=== PATIENT | male | born 1945 | race Caucasian/White ===

== ENCOUNTER 2019-05-26 18:00 | Inpatient (IN) ==
[2019-05-26] MEDS ORDERED: NS 1000 ML 1,000 ML ONE ×2 (18:34→19:49)
[2019-05-26] MEDS ORDERED: ZOFRAN INJ 4 MG VIAL IVP ONE ×2 (18:47→19:27)
--- NOTE | 2019-05-26 18:50 | DR.N/VMALE ---
HPI Time Seen Time Seen by Provider: 05/26/19 18:47 Primary Care Physician Primary Care Physician: LULÚ HPI Comment HPI Comment: PATIENT IS 74YR OLD MALE IN EMERGENCY ROOM WITH BETIC MEDICATION CHANGED. DIARRHEA THAT IS ON GOING FOR ONE WEEK. INCRESING WEAKNESS AND DIARRHA SINCE DIABETIC MEDICATION CHANGED. THAT MEDICATION IS NOW STOP. DENIES FEVER OR DYSURIA.PAIN 7/10 DIATING ALL OVER THE ABDOMEN. HE IS NAUSEATED BUT NO ACTIVE VOMITING CURRENTLY. Complaints Chief Complaint Doctors Comments: DIARRHEA, WEAKNESS AND NAUSEA TIMES ONE WEEK. Chief Complaint:: PT C/O POSSIBLE DEHYDRATION. PT STATES HE HAS BEEN HAVING NAUSEA AND DIARRHEA THAT HAS BEEN GOING ON FOR THE PAST FEW DAYS/ WEEKS. PT STATES HE WAS JUST STARTED ON A NEW DIABETIC MEDICATION AND HE HAS BEEN FEELING BAD BEFORE THE MEDICATION, BUT HIS PHYSICIAN AT THE [facility] HAS MADE HIM QUIT TAKING THE MEDICATION BECAUSE OF THE SYMPTOMS WORSENING. Reviewed Nurses Notes Reviewed: Yes Source History Provided: Patient Mode of Arrival Mode of Arrival: Ambulatory Timing Onset of Chief Complaint: 05/19/19 Context Onset: Spontaneous Recent: Contact Exposure History of: Diabetes Quality Quality: Other (LOOSE MUCOU DIARRHEA.) Associated Signs and Symptoms Abdominal Pain Quality: Cramping and Sharp Abdominal Pain Location: Diffuse Symptoms: Abdominal Pain and Diarrhea PMH PMH Past Medical History: Yes Past Medical History: Angina, CHF, Diabetes, Dyslipidemia, GERD, Hypertension and Renal Disease Past Surgical History: Yes Surgical History: Appendectomy and Ortho Surgery Past Surgical History Comment: ABLATION, NECK, BACK, LT LEG, LT FINGER Family History History of Family Medical Conditions: No Social History Does any household member use tobacco: No Alcohol Use: None Do you use any recreational Drugs:: No Lives With: Family Lives Where: Home infectious screening In the last 2 months have you had wt loss of >10#?: NO Have you had fever, night sweats or hemotysis?: No Have you traveled outside the country in the last 6 months?: No Isolation: Standard ROS Review of Systems Constitutional: See HPI, Weakness, Fatigue and Loss of Appetite; negative Fever Eyes: No Symptoms Reported and See HPI ENTM: No Symptoms Reported and See HPI Respiratoy: No Symptoms Reported and See HPI; negative Productive Cough, Short of Breath and Wheezing Cardiovascular: No Symptoms Reported and See HPI; negative Chest Pain, Edema and Palpitations Gastrointestinal/Abdominal: See HPI, Abdominal Pain, Diarrhea and Nausea; negative Constipation and Vomiting Genitourinary: No Symptoms Reported and See HPI; negative Dysuria, Frequency and Hematuria Neurological: See HPI, Weakness and Dizziness; negative Headache Musculoskeletal: See HPI and Muscle Pain; negative Back Pain Integumentary: No Symptoms Reported and See HPI; negative Change in Color, Rash and Juandice Hematologic/Lymphatic: See HPI, Easy Bleeding and Easy Bruising; negative Swollen Glands and Lymphadenopathy Endocrine: See HPI, Increased Thirst and Decreased Appetite; negative Increased Urine Psychiatric: No Symptoms Reported and See HPI All Other Systems: Reviewed and Negative PE Vital Signs Vitals: Temperature 98 F Pulse Rate [Left] 66 Pulse Rate 75 Respiratory Rate 20 Blood Pressure [Left Arm] 142/99 Blood Pressure 124/67 O2 Sat by Pulse Oximetry 95 General Limitations: No Limitations General Appearance: Alert and In No Apparent Distress Head Head Exam: Normal Inspection and Atraumatic Eyes Eye exam: Normal Appearance and PERRL; negative Scleral Icterus and Conjunctival Injection ENT ENT Exam: Normal Exam, Normal Oropharynx, Normal External Ear Exam and TM's Normal Bilaterally Neck Neck Exam: Normal Inspection and Trachea Midline; negative Tenderness and Lymphadenopathy Chest Chest Inspection: Normal Inspection and Symmetric Chest Wall Rise; negative Ten derness Respiratory Respiratory Exam: Normal Lung Sounds Bilat; negative Accessory Muscle Use, Chest Wall Tenderness and Respiratory Distress Respiratory Exam: Bilateral: Rhonchi and Lower: Rhonchi Cardiovascular Cardiovascular Exam: Regular Rate, Normal Rhythm and Normal Heart Sounds; negative Systolic Murmur and Diastolic Murmur Abdominal Exam Abdominal Exam: Normal Bowel Sounds, Soft and Tenderness Abdominal Tenderness: Diffuse and Moderate Rectal Rectal Exam: Deferred Exam: Male: Deferred Extremities Extremities Exam: Normal Inspection and Normal Capillary Refill; negative Tenderness, Edema and Calf Tenderness Back Back Exam: Normal Inspection and Vertebral Tenderness; negative Tenderness, (R) CVA Tenderness, (L) CVA Tenderness and Paraspinal Tenderness Neurologic Neurological Exam: Alert and Oriented X3; negative CN II-XII Intact and Motor Sensory Deficit Psychiatric Psychiatric Exam: Normal Affect and Normal Mood Skin Skin Exam: Dry MDM Differential Diagnosis Differential Diagnosis: Considerations may Include:: Bowel Obstruction, Gastroenteritis, Inflammatory BD, Pancreatitis, Urinary Tract Infection and Urolithiasis COURSE Treatment Treatment: SEE ORDERS. Education/Counseling Education/Counseling: Patient Educated On: Diagnosis ROR Labs Reviewed Laboratory Results Reviewed?: Yes Result Diagrams: 05/28/19 06:05 05/28/19 06:05 Laboratory: 05/27/19 13:25 Stool Stool Culture - Preliminary 05/27/19 13:25 Stool - Final WBC 10.1 X10^3/uL (3.6-10.0) H 05/28/19 06:05 RBC 4.58 X10^6/uL (4.7-6.0) L 05/28/19 06:05 Hgb 14.3 g/dL (13.5-18.0) 05/28/19 06:05 Hct 41.4 % (42.0-54.0) L 05/28/19 06:05 MCV 90.3 fL (80.0-100.0) 05/28/19 06:05 MCH 31.1 pg (27.0-34.0) 05/28/19 06:05 MCHC 34.5 g/dL (33.0-35.0) 05/28/19 06:05 RDW 13.1 % (11.6-16.5) 05/28/19 06:05 Plt Count 249 X10^3/uL (150.0-450.0) 05/28/19 06:05 Plt Count Comment Adequate (ADEQUATE) 05/28/19 06:05 MPV 7.3 fL (7.4-11.0) L 05/28/19 06:05 Neut % (Auto) 59.9 % (42.0-75.0) 05/28/19 06:05 Lymph % (Auto) 24.1 % (21.0-51.0) 05/28/19 06:05 [place] % (Auto) 13.1 % (0.0-13.0) H 05/28/19 06:05 Eos % (Auto) 2.4 % (0.9-2.9) 05/28/19 06:05 Baso % (Auto) 0.5 % (0.2-1.0) 05/28/19 06:05 Neut # (Auto) 6.1 x10^3/uL (2.2-4.8) H 05/28/19 06:05 Lymph # (Auto) 2.4 X10^3/uL (1.3-2.9) 05/28/19 06:05 [place] # (Auto) 1.3 x10^3/uL (0.3-0.8) H 05/28/19 06:05 Eos # (Auto) 0.2 x10^3/uL (0.0-0.2) 05/28/19 06:05 Baso # (Auto) 0.1 X10^3/uL (0.0-0.1) 05/28/19 06:05 Absolute Nucleated RBC 0.0 /100WBC 05/28/19 06:05 Total Counted 100 05/28/19 06:05 Neutrophils % (Manual) 54 % (39-76) 05/28/19 06:05 Band Neutrophils % 8 % (0-10) 05/28/19 06:05 Lymphocytes % (Manual) 20 % (13-43) 05/28/19 06:05 Monocytes % (Manual) 10 % (4-9) H 05/28/19 06:05 Eosinophils % (Manual) 8 % (0-6) H 05/28/19 06:05 Plt Morphology Comment Normal (NORMAL) 05/28/19 06:05 RBC Morphology Normal (NORMAL) 05/28/19 06:05 ESR 19 MM/HOUR (0-15) H 05/28/19 06:05 Sodium 138 mmol/L (136-145) 05/28/19 06:05 Corrected Sodium 140 mmol/L (136-145) 05/28/19 06:05 Potassium 3.5 mmol/L (3.5-5.1) 05/28/19 06:05 Chloride 106 mmol/L (98-107) 05/28/19 06:05 Carbon Dioxide 20.0 mmol/L (21-32) L 05/28/19 06:05 BUN 13 mg/dL (7-18) 05/28/19 06:05 Creatinine 1.22 mg/dL (0.70-1.30) 05/28/19 06:05 Est GFR (MDRD) Af Amer > 60 (>60) 05/28/19 06:05 Est GFR (MDRD) Non-Af > 60 (>60) 05/28/19 06:05 Glucose 199 mg/dL (65-99) H 05/28/19 06:05 POC Glucose (mg/dL) 143 mg/dL (65-99) H 05/27/19 16:27 Calcium 7.9 mg/dL (8.5-10.1) L 05/28/19 06:05 Corrected Calcium 8.8 mg/dL (8.5-10.1) 05/28/19 06:05 Magnesium 1.4 mg/dL (1.7-2.9) L 05/28/19 06:05 Total Bilirubin 0.30 mg/dL (0.2-1.0) 05/28/19 06:05 AST 21 Units/L (15-37) 05/28/19 06:05 ALT 37 Units/L (12-78) 05/28/19 06:05 Alkaline Phosphatase 45 Units/L (46-116) L 05/28/19 06:05 C-Reactive Protein 69.80 mg/L (0-3.0) H 05/28/19 06:05 Total Protein 6.7 g/dL (6.4-8.2) 05/28/19 06:05 Albumin 2.9 g/dL (3.4-5.0) L 05/28/19 06:05 Globulin 3.8 g/dL (2.5-4.5) 05/28/19 06:05 Albumin/Globulin Ratio 0.8 Ratio (1.1-2.1) L 05/28/19 06:05 Amylase 36 Units/L (25-115) 05/26/19 18:45 Lipase 149 Units/L (73-393) 05/26/19 18:45 Free T4 1.05 ng/dL (0.76-1.46) 05/28/19 06:05 TSH 3rd Generation 2.945 uIU/mL (0.358-3.74) 05/28/19 06:05 Specimen Type Clean catch urine 05/26/19 21:27 Urine Color Dark yellow (YELLOW) 05/26/19 21:27 Urine Appearance Clear (CLEAR) 05/26/19 21:27 Urine pH 5.0 (5.0 - 8.0) 05/26/19 21: Ur Specific [place] 1.020 (1.000-1.030) 05/26/19 21:27 Urine Protein 3+ (NEGATIVE) 05/26/19 21:27 Urine Glucose (UA) 1+ (NEGATIVE) 05/26/19 21:27 Urine Ketones Negative (NEGATIVE) 05/26/19 21:27 Urine Occult Blood Negative (NEGATIVE) 05/26/19 21:27 Urine Nitrite Negative (NEGATIVE) 05/26/19 21:27 Urine Bilirubin 1+ (NEGATIVE) 05/26/19 21:27 Urine Urobilinogen 1+ (NORMAL) 05/26/19 21:27 Ur Leukocyte Esterase 1+ (NEGATIVE) 05/26/19 21:27 Urine RBC 0-2 /HPF (0-3) 05/26/19 21:27 Urine WBC 3-5 /HPF (0-5) 05/26/19 21:27 Ur Squamous Epith Cells Few /HPF (NEGATIVE) 05/26/19 21:27 Urine Bacteria Trace /HPF (NEGATIVE) 05/26/19 21:27 Hyaline Casts Few /LPF (NEGATIVE) 05/26/19 21:27 Urine Mucus Few /HPF (NEGATIVE) 05/26/19 21:27 Ur Culture Indicated? No/not indicated 05/26/19 21:27 Stool Description 200g brown liquid 05/27/19 13:25 Stl Occult Blood (IFOB) Positive (NEGATIVE) A 05/27/19 13:25 Stool for White Cells Positive (NEGATIVE) A 05/27/19 13:25 Stl C. diff Tox B Gene Negative (NEGATIVE) 05/27/19 13:25 Stl C. diff 027-NAP1-BI Negative (NEGATIVE) 05/27/19 13:25 Stool H. pylori Ag Negative (NEGATIVE) 05/27/19 13:25 Acetone, Semi-Quant Negative (NEGATIVE) 05/26/19 18:45 Cryptosporid parvum Ag Negative (NEGATIVE) 05/27/19 13:25 Giardia lamblia Ag Negative (NEGATIVE) 05/27/19 13:25 Influenza Type A (PCR) Negative (NEGATIVE) 05/26/19 21:07 Influenza Type B (PCR) Negative (NEGATIVE) 05/26/19 21:07 XRAY XRAY Interpreted by: Radiologist XRAY Findings: REPORT NOTED AND DISCUSS WITH PATIENT. Opioid Opioid Risk Tool Age (Matthew box if 16-45): No Total: 0 Total Score Risk Category: Low Risk Copyright: [facility] predicting aberrant behaviors Diagnosis Discharge Problem: Colitis Abdominal pain Qualifiers: Abdominal location: generalized Qualified Code(s): R10.84 - Generalized abdominal pain Diarrhea Qualifiers: Diarrhea type: unspecified type Qualified Code(s): R19.7 - Diarrhea, unspecified
[2019-05-26] MEDS ORDERED: NS 1000 ML 1,000 ML IV ONE (18:56)
[2019-05-26] MEDS ORDERED: ZOFRAN INJ 4 MG VIAL ONE ×2 (18:58→19:28)
[2019-05-26 19:07] LABS: BASOPHILS % (AUTO) 0.2 % (0.2-1.0); EOSINOPHILS # (AUTO) 0.2 x10^3/uL (0.0-0.2); EOSINOPHILS % (AUTO) 1.2 % (0.9-2.9); HEMATOCRIT 43.1 % (42.0-54.0); HEMOGLOBIN 14.5 g/dL (13.5-18.0); LYMPHOCYTES # (AUTO) 1.3 X10^3/uL (1.3-2.9); LYMPHOCYTES % (AUTO) 9.3 % (21.0-51.0); MEAN CORPUSCULAR HEMOGLOBIN 30.7 pg (27.0-34.0); MEAN CORPUSCULAR HGB CONC 33.7 g/dL (33.0-35.0); MEAN CORPUSCULAR VOLUME 91.1 fL (80.0-100.0); MEAN PLATELET VOLUME 7.9 fL (7.4-11.0); MONOCYTES % (AUTO) 7.5 % (0.0-13.0); NEUTROPHILS # (AUTO) 11.5 x10^3/uL (2.2-4.8); NEUTROPHILS % (AUTO) 81.8 % (42.0-75.0); PLATELET COUNT 197 X10^3/uL (150.0-450.0); RED BLOOD COUNT 4.73 X10^6/uL (4.7-6.0); RED CELL DISTRIBUTION WIDTH 13.3 % (11.6-16.5)
[2019-05-26 19:11] LABS: SERUM ACETONE NEGATIVE (NEGATIVE)
[2019-05-26 19:12] LABS: ALANINE AMINOTRANSFERASE 47 Units/L (12-78); ALBUMIN 3.1 g/dL (3.4-5.0); ALKALINE PHOSPHATASE 49 Units/L (46-116); AMYLASE 36 Units/L (25-115); ASPARTATE AMINO TRANSFERASE 15 Units/L (15-37); BLOOD UREA NITROGEN 29 mg/dL (7-18); CARBON DIOXIDE 17.4 mmol/L (21-32); CHLORIDE 104 mmol/L (98-107); COR CA(FOR HYPOALB) 8.7 mg/dL (8.5-10.1); COR NA(FOR HYPERGLY) 138 mmol/L (136-145); CREATININE 1.59 mg/dL (0.70-1.30); LIPASE 149 Units/L (73-393); SODIUM 135 mmol/L (136-145); TOTAL PROTEIN 6.6 g/dL (6.4-8.2); eGFR NON BLACK RACES 45 (>60)
[2019-05-26] MEDS ORDERED: NS 1000 ML 1,000 ML IV SCH (20:00)
[2019-05-26 21:31] LABS: BILIRUBIN,URINE 1+ (NEGATIVE); BLOOD/HEMOGLOBIN,URINE NEGATIVE (NEGATIVE); GLUCOSE, URINE 1+ (NEGATIVE); KETONES,URINE NEGATIVE (NEGATIVE); LEUKOCYTE ESTERASE ,URINE 1+ (NEGATIVE); NITRITES,URINE NEGATIVE (NEGATIVE); PROTEIN,URINE 3+ (NEGATIVE); UROBILINOGEN,URINE 1+ (NORMAL)
[2019-05-26 21:32] LABS: APPEARANCE,URINE CLEAR (CLEAR); COLOR,URINE DARK YELLOW (YELLOW)
[2019-05-26 21:38] LABS: BACTERIA,URINE TRACE /HPF (NEGATIVE); HYALINE CASTS, URINE FEW /LPF (NEGATIVE); MUCUS,URINE FEW /HPF (NEGATIVE); RBC,URINE 0-2 /HPF (0-3); SQUAMOUS EPITHELIAL CELL,UR FEW /HPF (NEGATIVE)
--- NOTE | 2019-05-26 22:02 | RAD ---
Acute abdominal series Indication:Abdominal pain Comparison: None available Findings: The trachea is midline. The cardiac silhouette is enlarged with chronic pulmonary vascular congestion. No focal airspace opacity, pleural effusion or pneumothorax. The bony thorax is unremarkable. Flat and upright evaluation of the abdomen demonstrates a normal bowel gas pattern. No pathological soft tissue mass or calcification can be observed. The bony structures are grossly intact. IMPRESSION: 1. Cardiomegaly and chronic pulmonary vascular congestion without evidence of acute airspace disease or CHF. 2. No evidence for acute abdominal pathology identified. Reported By:
[2019-05-26] MEDS ORDERED: PHENERGAN INJ 25 MG IM ONE ×2 (22:17→22:19)
[2019-05-26] MEDS ORDERED: PEPCID 20 MG IV PREMIX* 20 MG/50 ML BAG IV PRN (23:57)
[2019-05-26] MEDS ORDERED: PHENERGAN INJ 25 MG IM PRN (23:57)
[2019-05-27] MEDS: ZOFRAN INJ 4 MG VIAL IVP PRN ×3 (01:37→20:55)
[2019-05-27 02:28] VITALS: BMI 35.4
[2019-05-27] MEDS: NS 1000 ML 1,000 ML IV SCH ×4 (02:38→20:53)
[2019-05-27 06:12] LABS: BASOPHILS % (AUTO) 0.2 % (0.2-1.0); EOSINOPHILS # (AUTO) 0.3 x10^3/uL (0.0-0.2); EOSINOPHILS % (AUTO) 1.9 % (0.9-2.9); HEMATOCRIT 38.9 % (42.0-54.0); HEMOGLOBIN 13.4 g/dL (13.5-18.0); LYMPHOCYTES # (AUTO) 2.2 X10^3/uL (1.3-2.9); LYMPHOCYTES % (AUTO) 15.4 % (21.0-51.0); MEAN CORPUSCULAR HEMOGLOBIN 31.1 pg (27.0-34.0); MEAN CORPUSCULAR HGB CONC 34.5 g/dL (33.0-35.0); MEAN CORPUSCULAR VOLUME 90.2 fL (80.0-100.0); MEAN PLATELET VOLUME 7.5 fL (7.4-11.0); MONOCYTES # (AUTO) 1.9 x10^3/uL (0.3-0.8); MONOCYTES % (AUTO) 13.2 % (0.0-13.0); NEUTROPHILS # (AUTO) 9.7 x10^3/uL (2.2-4.8); NEUTROPHILS % (AUTO) 69.3 % (42.0-75.0); PLATELET COUNT 193 X10^3/uL (150.0-450.0); RED BLOOD COUNT 4.32 X10^6/uL (4.7-6.0); RED CELL DISTRIBUTION WIDTH 13.2 % (11.6-16.5)
[2019-05-27 06:26] LABS: ALANINE AMINOTRANSFERASE 37 Units/L (12-78); ALBUMIN 2.7 g/dL (3.4-5.0); ALKALINE PHOSPHATASE 50 Units/L (46-116); ASPARTATE AMINO TRANSFERASE 19 Units/L (15-37); BLOOD UREA NITROGEN 20 mg/dL (7-18); CALCIUM 7.8 mg/dL (8.5-10.1); CARBON DIOXIDE 16.7 mmol/L (21-32); CHLORIDE 109 mmol/L (98-107); COR CA(FOR HYPOALB) 8.8 mg/dL (8.5-10.1); COR NA(FOR HYPERGLY) 139 mmol/L (136-145); CREATININE 1.22 mg/dL (0.70-1.30); SODIUM 138 mmol/L (136-145); TOTAL PROTEIN 6.2 g/dL (6.4-8.2); eGFR NON BLACK RACES > 60 (>60)
[2019-05-27] MEDS: CIPRO IV 400 MG PREMIX* 400 MG/200 ML IV.SOLN. IV SCH ×2 (13:24→20:43)
[2019-05-27] MEDS: FLAGYL IV PREMIX 500 MG BAG 500 MG/100 ML BAG IV SCH ×2 (14:23→22:02)
[2019-05-27 14:41] LABS: CRYPTOSPORIDIUM PARVUM ANTIGEN NEGATIVE (NEGATIVE); GIARDIA LAMBLIA ANTIGEN NEGATIVE (NEGATIVE)
--- NOTE | 2019-05-27 16:54 | CT ---
CT abdomen and pelvis with contrast Indication: Epigastric pain Comparison: None Technique: CT images of the abdomen and pelvis were obtained with IV and oral contrast. Automatic exposure control was utilized. Findings: Moderate multilevel spine degenerative change with mild levoscoliosis. No acute osseous abnormality. There is a benign-appearing round lytic lucency within the right femoral neck, most likely a synovial herniation pit. The lung bases are essentially clear. There is small hiatal hernia of the stomach. There is a hypoattenuating circumscribed lesion within the left hepatic lobe. The liver otherwise enhances normally. The gallbladder, spleen, stomach, duodenum, pancreas, and adrenals are unremarkable. The kidneys contain multiple simple appearing cysts bilaterally, but otherwise enhance normally. No renal stones or hydronephrosis. No radiopaque ureteral stone or hydroureter is observed. There is mild colonic diverticulosis, without evidence for acute diverticulitis. No significant thickening or dilatation of the lower GI tract is identified. The appendix is absent. The prostate is mildly enlarged. The urinary bladder and rectum are unremarkable. No free fluid or adenopathy. Impression: No acute abnormality identified to explain patient's symptoms. Small left hepatic lobe hypodensity cannot be definitively characterized, but is of doubtful significance. However, this can be followed up non emergently with liver protocol MRI, if clinically indicated. Small hiatal hernia, prostate enlargement, renal cysts, colonic diverticulosis, spine degenerative change. Reported By:
--- NOTE | 2019-05-27 16:56 | DR.H&P ---
H&P - History & Physical for Day of: H&P Date: 05/26/19 - Chief Complaint Chief Complaint: ABDOMINAL PAIN, NAUSEA, DIARRHEA - History of Present Illness History of Present Illness: IS A 74 YEAR OLD PATIENT OF OURS WHO PRESENTED TO THE ER WITH COMPLAINTS OF WEAKNESS, NAUSEA, AND DIARRHEA. HE REPORTS THAT SYMPTOMS STARTED ABOUT A WEEK AGO. HE STATES THAT HE FEELS LIKE HIS SYMPTOMS BEGAN WHEN HE STARTED TAKING A NEW DIABETIC MEDICATION. ON ARRIVAL TO THE ER, VITALS WERE 97.1-85-20-96%-124/67. LABS WERE OBTAINED. ABNORMAL LAB VALUES INCLUDE THE FOLLOWING: WBC 14.0, SODIUM 135, CARBON DIOXIDE 17.4, BUN 29, CREATININE 1.59, GLUCOSE 244, CALCIUM 8.0, ALBUMIN 3.1, ACETONES NEGATIVE. A URINALYSIS WAS OBTAINED AND REVEALED: WBC 3-5, RBC 0-2, LEUKOCYTES 1+, BACTERIA TRACE. AN ABDOMEN XRAY WAS OBTAINED AND REVEALED: Cardiomegaly and chronic pulmonary vascular congestion without evidence of acute airspace disease or CHF. No evidence for acute abdominal pathology identified. HE WAS GIVEN A NORMAL SALINE BOLUS, ZOFRAN 4MG IV X 2 DOSES, AND PHENERGAN 25MG IM X 1 DOSE. HE REPORTED MILD IMPROVEMENT IN SYMPTOMS. HE WAS ADMITTED FOR FURTHER EVALUATION AND TREATMENT OF DEHYDRATION, DIARRHEA, AND ABDOMINAL PAIN. HE WAS STARTED ON NORMAL SALINE AT 125ML/HR, IV PEPCID, ZOFRAN 4MG IV Q6H PRN, PHENERGAN 12.5MG IM Q6H PRN, AND HUMULIN SLIDING SCALE. WE PLAN TO OBTAIN AN ABDOMEN/PELVIS CT WITH CONTRAST IN THE AM. OTHERWISE, WE WILL FOLLOW UP WITH AM LABS AND CONTINUE TO MONITOR. - Past Medical History Past Medical History: Angina, Hypertension, Dyslipidemia, Diabetes, Renal Disease, GERD, CHF - Past Surgical History Surgical History: Angioplasty/Stents, Appendectomy - Family History Family Medical History: Diabetes Mellitus, Cancer, MS, Coronary Artery Disease, Heart Failure, Sudden Cardiac , Hypertension - Social History Does patient currently use any type of tobacco product: No Have you used tobacco products in the last 12 months: No Type of Tobacco Use: None Does any household member use tobacco: No Alcohol Use: None Drug Use: None - Medications Home Medications: codeine Adverse Reaction (Verified 05/26/19 18:10) morphine Adverse Reaction (Verified 05/26/19 18:10) CONTINUE taking the following medications aspirin [Aspir-Low] 81 mg PO DAILY 05/27/19 [History] bisoprolol fumarate 10 mg PO DAILY 05/27/19 [History] budesonide-formoterol [Symbicort] 2 puff INHALATION Q12H 05/27/19 [History] diclofenac sodium 50 mg PO TID PRN 05/27/19 [History] finasteride 5 mg PO DAILY 05/27/19 [History] hydrochlorothiazide 25 mg PO QAM 05/27/19 [History] insulin aspart U-100 [Novolog U-100 Insulin aspart] 25 unit SUBCUT TID 05/27/19 [History] insulin glargine [Lantus U-100 Insulin] 40 unit SUBCUT QHS 05/27/19 [History] losartan 25 mg PO BID 05/27/19 [History] nitroglycerin 0.4 mg SUBLINGUAL Q5-15M PRN 05/27/19 [History] omeprazole 20 mg PO DAILY 05/27/19 [History] rosuvastatin 40 mg PO HS 05/27/19 [History] terazosin 10 mg PO QHS 05/27/19 [History] trospium 20 mg PO BID 05/27/19 [History] - Review of Systems Constitutional: Weakness Eyes: No Symptoms Reported ENT: No Symptoms Reported Respiratory: No Symptoms Reported Cardiovascular: No Symptoms Reported Gastrointestinal: Nausea, Abdominal Pain, Diarrhea Genitourinary: No Symptoms Reported Musculoskeletal: No Symptoms Reported Skin: No Symptoms Reported Neurological: Weakness - Physical Exam Vital Signs: Temperature 98.5 F Pulse Rate [Left] 77 Pulse Rate 85 Respiratory Rate 20 Blood Pressure [Left Arm] 135/71 Blood Pressure 124/67 O2 Sat by Pulse Oximetry 97 Oriented: Normal Eyes: Normal Ear: Normal Nose: Normal Throat: Normal Respiratory: Diminished Throughout Cardiovascular: Normal : Normal Auscultation: Bowel Sounds: Increased Palpation: Normal Tenderness: Diffuse, Moderate. negative: Rebound, Guarding, Rigidity Skin: Normal Musculoskeletal: Normal Psychiatric: Normal Mood Description: Calm Affect: Normal Speech Pattern: Clear - Assessment/Plan (1) Dehydration Status: Acute Plan: NORMAL SALINE AT 125ML/HR, CONTINUE TO MONITOR (2) Abdominal pain Qualifiers: Abdominal location: generalized Qualified Code(s): R10.84 - Generalized abdominal pain Status: Acute Plan: OBTAIN ABDOMEN/PELVIS CT, CONTINUE TO MONITOR (3) Diarrhea Qualifiers: Diarrhea type: presumed infectious Qualified Code(s): R19.7 - Diarrhea, unspecified Status: Acute Plan: STOOL STUDIES, CONTINUE TO MONITOR - Allergies Allergies/Adverse Reactions: Allergies Allergy/AdvReac Type Severity Reaction Status Date / Time codeine AdvReac Verified 05/26/19 18:10 morphine AdvReac Verified 05/26/19 18:10
--- NOTE | 2019-05-27 19:11 | PCM.PROG ---
Progress Note - Progress Note for Day of Date of Exam: 05/27/19 - Subjective Subjective: WAS ADMITTED FOR ABDOMINAL PAIN, DIARRHEA, AND DEHYDRATION. TODAY, HE IS ALERT AND ORIENTED, LYING IN BED ON MORNING ROUNDS. HE CONTINUES WITH COMPLAINTS OF ABDOMINAL PAIN AND NAUSEA. ON EXAMINATION, HEART IS REGULAR IN RATE AND RHYTHM. BILATERAL LUNGS ARE NOTED WITH DIMINISHED LUNG SOUNDS THROUGHOUT. ABDOMEN IS ROUND, SOFT, AND NOTED WITH DIFFUSE TENDERNESS. HYPERACTIVE BOWEL SOUNDS ARE NOTED. HIS VITALS THIS MORNING ARE: 99.2-66-20-94%NC-127/61. LABS WERE OBTAINED. ABNORMAL LAB VALUES INCLUDE THE FOLLOWING: RBC 3.15, HGB 11.2, HCT 32.6, PLT COUNT 112, BUN 19, GLUCOSE 224, MARIA C CIUM 8.2, TOTAL PROTEIN 6.3, ALBUMIN 2.8. 98.0-87-18-96%-126/73. LABS WERE OBTAINED. ABNORMAL LAB VALUES INCLUDE THE FOLLOWING: WBC 14.0, RBC 4.32, HGB 13.4, HCT 38.9, CHLORIDE 109, CARBON DIOXIDE 16.7, BUN 20, GLUCOSE 156, CALCIUM 7.8, TOTAL PROTEIN 6.2, ALBLUMIN 2.7. HE IS CURRENTLY RECEIVING NORMAL SALINE AT 125ML/HR, IV PEPCID, ZOFRAN 4MG IV Q6H PRN, PHENERGAN 12.5MG IM Q6H PRN, AND HUMULIN SLIDING SCALE. TODAY, WE WILL OBTAIN AN ABDOMEN/PELVIS CT WITH CONTRAST AND OBTAIN STOOL CULTURES. WE WILL START CIPRO 400MG IV Q12H AND FLAGYL 500MG IV Q8H. OTHERWISE, WE WILL FOLLOW UP WITH AM LABS AND CONTINUE TO MONITOR. - Past Medical Family Social History Past Med/Fam/Surg Hx: No changes since H&P Allergies: Allergies codeine Adverse Reaction (Verified 05/26/19 18:10) morphine Adverse Reaction (Verified 05/26/19 18:10) - Review of Systems ROS: No change since H&P - Vital Signs and I&O's Vital Signs: Temperature 98.5 F Pulse Rate [Left] 77 Pulse Rate 85 Respiratory Rate 20 Blood Pressure [Left Arm] 135/71 Blood Pressure 124/67 O2 Sat by Pulse Oximetry 97 Intake and Output: Intake & Output 05/25/19 05/26/19 05/27/19 05/28/19 11:59 11:59 11:59 11:59 Intake Total 885 / 885 Balance 885 / 885 - Physical Exam Oriented: Normal Eyes: Normal Ear: Normal Nose: Normal Throat: Normal Respiratory: Generalized, Diminished Cardiovascular: Normal : Normal Auscultation: Bowel Sounds: Increased Tenderness: Diffuse, Moderate. negative: Rebound, Guarding, Rigidity Skin: Normal Musculoskeletal: Normal Psychiatric: Normal Mood Description: Calm Affect: Normal Speech Pattern: Clear - Laboratory and Diagnostics Result Diagrams: 05/27/19 05:42 05/27/19 05:42 Labs: 05/27/19 13:25 Stool - Final Laboratory WBC 14.0 X10^3/uL (3.6-10.0) H 05/27/19 05:42 RBC 4.32 X10^6/uL (4.7-6.0) L 05/27/19 05:42 Hgb 13.4 g/dL (13.5-18.0) L 05/27/19 05:42 Hct 38.9 % (42.0-54.0) L 05/27/19 05:42 MCV 90.2 fL (80.0-100.0) 05/27/19 05:42 MCH 31.1 pg (27.0-34.0) 05/27/19 05:42 MCHC 34.5 g/dL (33.0-35.0) 05/27/19 05:42 RDW 13.2 % (11.6-16.5) 05/27/19 05:42 Plt Count 193 X10^3/uL (150.0-450.0) 05/27/19 05:42 MPV 7.5 fL (7.4-11.0) 05/27/19 05:42 Neut % (Auto) 69.3 % (42.0-75.0) 05/27/19 05:42 Lymph % (Auto) 15.4 % (21.0-51.0) L 05/27/19 05:42 [place] % (Auto) 13.2 % (0.0-13.0) H 05/27/19 05:42 Eos % (Auto) 1.9 % (0.9-2.9) 05/27/19 05:42 Baso % (Auto) 0.2 % (0.2-1.0) 05/27/19 05:42 Neut # (Auto) 9.7 x10^3/uL (2.2-4.8) H 05/27/19 05:42 Lymph # (Auto) 2.2 X10^3/uL (1.3-2.9) 05/27/19 05:42 [place] # (Auto) 1.9 x10^3/uL (0.3-0.8) H 05/27/19 05:42 Eos # (Auto) 0.3 x10^3/uL (0.0-0.2) H 05/27/19 05:42 Baso # (Auto) 0.0 X10^3/uL (0.0-0.1) 05/27/19 05:42 Absolute Nucleated RBC 0.0 /100WBC 05/27/19 05:42 Sodium 138 mmol/L (136-145) 05/27/19 05:42 Corrected Sodium 139 mmol/L (136-145) 05/27/19 05:42 Potassium 3.8 mmol/L (3.5-5.1) 05/27/19 05:42 Chloride 109 mmol/L (98-107) H 05/27/19 05:42 Carbon Dioxide 16.7 mmol/L (21-32) L 05/27/19 05:42 BUN 20 mg/dL (7-18) H 05/27/19 05:42 Creatinine 1.22 mg/dL (0.70-1.30) 05/27/19 05:42 Est GFR (MDRD) Af Amer > 60 (>60) 05/27/19 05:42 Est GFR (MDRD) Non-Af > 60 (>60) 05/27/19 05:42 Glucose 156 mg/dL (65-99) H 05/27/19 05:42 POC Glucose (mg/dL) 143 mg/dL (65-99) H 05/27/19 16:27 Calcium 7.8 mg/dL (8.5-10.1) L 05/27/19 05:42 Corrected Calcium 8.8 mg/dL (8.5-10.1) 05/27/19 05:42 Total Bilirubin 0.40 mg/dL (0.2-1.0) 05/27/19 05:42 AST 19 Units/L (15-37) 05/27/19 05:42 ALT 37 Units/L (12-78) 05/27/19 05:42 Alkaline Phosphatase 50 Units/L (46-116) 05/27/19 05:42 Total Protein 6.2 g/dL (6.4-8.2) L 05/27/19 05:42 Albumin 2.7 g/dL (3.4-5.0) L 05/27/19 05:42 Globulin 3.5 g/dL (2.5-4.5) 05/27/19 05:42 Albumin/Globulin Ratio 0.8 Ratio (1.1-2.1) L 05/27/19 05:42 Amylase 36 Units/L (25-115) 05/26/19 18:45 Lipase 149 Units/L (73-393) 05/26/19 18:45 Specimen Type Clean catch urine 05/26/19 21:27 Urine Color Dark yellow (YELLOW) 05/26/19 21:27 Urine Appearance Clear (CLEAR) 05/26/19 21:27 Urine pH 5.0 (5.0 - 8.0) 05/26/19 21:27 Ur Specific [place] 1.020 (1.000-1.030) 05/26/19 21:27 Urine Protein 3+ (NEGATIVE) 05/26/19 21:27 Urine Glucose (UA) 1+ (NEGATIVE) 05/26/19 21:27 Urine Ketones Negative (NEGATIVE) 05/26/19 21:27 Urine Occult Blood Negative (NEGATIVE) 05/26/19 21:27 Urine Nitrite Negative (NEGATIVE) 05/26/19 21:27 Urine Bilirubin 1+ (NEGATIVE) 05/26/19 21:27 Urine Urobilinogen 1+ (NORMAL) 05/26/19 21:27 Ur Leukocyte Esterase 1+ (NEGATIVE) 05/26/19 21:27 Urine RBC 0-2 /HPF (0-3) 05/26/19 21:27 Urine WBC 3-5 /HPF (0-5) 05/26/19 21:27 Ur Squamous Epith Cells Few /HPF (NEGATIVE) 05/26/19 21:27 Urine Bacteria Trace /HPF (NEGATIVE) 05/26/19 21:27 Hyaline Casts Few /LPF (NEGATIVE) 05/26/19 21:27 Urine Mucus Few /HPF (NEGATIVE) 05/26/19 21:27 Ur Culture Indicated? No/not indicated 05/26/19 21:27 Stool Description 200g brown liquid 05/27/19 13:25 Stl Occult Blood (IFOB) Positive (NEGATIVE) A 05/27/19 13:25 Stool for White Cells Positive (NEGATIVE) A 05/27/19 13:25 Stl C. diff Tox B Gene Negative (NEGATIVE) 05/27/19 13:25 Stl C. diff 027-NAP1-BI Negative (NEGATIVE) 05/27/19 13:25 Stool H. pylori Ag Negative (NEGATIVE) 05/27/19 13:25 Acetone, Semi-Quant Negative (NEGATIVE) 05/26/19 18:45 Cryptosporid parvum Ag Negative (NEGATIVE) 05/27/19 13:25 Giardia lamblia Ag Negative (NEGATIVE) 05/27/19 13:25 Influenza Type A (PCR) Negative (NEGATIVE) 05/26/19 21:07 Influenza Type B (PCR) Negative (NEGATIVE) 05/26/19 21:07 - Plan (1) Dehydration Status: Acute Plan: NORMAL SALINE AT 125ML/HR, CONTINUE TO MONITOR (2) Abdominal pain Status: Acute Qualifiers: Abdominal location: generalized Qualified Code(s): R10.84 - Generalized abdominal pain Plan: OBTAIN ABDOMEN/PELVIS CT, CONTINUE TO MONITOR (3) Diarrhea Status: Acute Qualifiers: Diarrhea type: presumed infectious Qualified Code(s): R19.7 - Diarrhea, unspecified Plan: STOOL STUDIES, CIPRO IV, FLAGYL IV, CONTINUE TO MONITOR
[2019-05-27] MEDS: PULMICORT NEB TX 0.5 MG NEB SCH (20:32)
[2019-05-27] MEDS: HumuLIN R SC PRN (20:45)
[2019-05-27] MEDS ORDERED: ROSUVASTATIN 40 MG PO SCH (21:00)
[2019-05-27] MEDS ORDERED: LANTUS SC SCH (21:00)
[2019-05-27] MEDS: COZAAR PO SCH (21:41)
[2019-05-27] MEDS: CRESTOR TAB 10 MG PO SCH (21:42)
[2019-05-27] MEDS: TROSPIUM 20 MG PO SCH (21:42)
[2019-05-27] MEDS: LANTUS SC SCH (22:02)
[2019-05-27] MEDS: HYTRIN PO SCH (22:02)
[2019-05-28] MEDS: NS 1000 ML 1,000 ML IV SCH ×5 (02:32→21:58)
[2019-05-28] MEDS: FLAGYL IV PREMIX 500 MG BAG 500 MG/100 ML BAG IV SCH ×3 (05:52→21:51)
[2019-05-28 06:26] LABS: BASOPHILS # (AUTO) 0.1 X10^3/uL (0.0-0.1); BASOPHILS % (AUTO) 0.5 % (0.2-1.0); EOSINOPHILS # (AUTO) 0.2 x10^3/uL (0.0-0.2); EOSINOPHILS % (AUTO) 2.4 % (0.9-2.9); HEMATOCRIT 41.4 % (42.0-54.0); HEMOGLOBIN 14.3 g/dL (13.5-18.0); LYMPHOCYTES # (AUTO) 2.4 X10^3/uL (1.3-2.9); LYMPHOCYTES % (AUTO) 24.1 % (21.0-51.0); MEAN CORPUSCULAR HEMOGLOBIN 31.1 pg (27.0-34.0); MEAN CORPUSCULAR HGB CONC 34.5 g/dL (33.0-35.0); MEAN CORPUSCULAR VOLUME 90.3 fL (80.0-100.0); MEAN PLATELET VOLUME 7.3 fL (7.4-11.0); MONOCYTES # (AUTO) 1.3 x10^3/uL (0.3-0.8); MONOCYTES % (AUTO) 13.1 % (0.0-13.0); NEUTROPHILS # (AUTO) 6.1 x10^3/uL (2.2-4.8); NEUTROPHILS % (AUTO) 59.9 % (42.0-75.0); PLATELET COUNT 249 X10^3/uL (150.0-450.0); RED BLOOD COUNT 4.58 X10^6/uL (4.7-6.0); RED CELL DISTRIBUTION WIDTH 13.1 % (11.6-16.5); WHITE BLOOD COUNT 10.1 X10^3/uL (3.6-10.0)
[2019-05-28] MEDS: HumuLIN R SC PRN ×4 (06:36→21:50)
[2019-05-28 06:37] LABS: ALANINE AMINOTRANSFERASE 37 Units/L (12-78); ALBUMIN 2.9 g/dL (3.4-5.0); ALKALINE PHOSPHATASE 45 Units/L (46-116); ASPARTATE AMINO TRANSFERASE 21 Units/L (15-37); BLOOD UREA NITROGEN 13 mg/dL (7-18); CALCIUM 7.9 mg/dL (8.5-10.1); CHLORIDE 106 mmol/L (98-107); COR CA(FOR HYPOALB) 8.8 mg/dL (8.5-10.1); COR NA(FOR HYPERGLY) 140 mmol/L (136-145); CREATININE 1.22 mg/dL (0.70-1.30); SODIUM 138 mmol/L (136-145); TOTAL PROTEIN 6.7 g/dL (6.4-8.2); eGFR NON BLACK RACES > 60 (>60)
[2019-05-28 07:06] LABS: BAND NEUTROPHILS % 8 % (0-10); PLATELET MORPHOLOGY COMMENT NORMAL (NORMAL)
[2019-05-28] MEDS ORDERED: MICRO K EXTEN CAP 10 MEQ PO PRN (08:24)
[2019-05-28] MEDS ORDERED: POTASSIUM CHL 40 MEQ/NS 0.45% 500 ML IV PRN (08:24)
[2019-05-28] MEDS ORDERED: KLOR-CON PO PRN (08:24)
[2019-05-28] MEDS ORDERED: POTASSIUM CHL 60 MEQ/NS 0.45% 500 ML IV PRN (08:24)
[2019-05-28] MEDS ORDERED: K-DUR TAB 20 MEQ PO PRN (08:24)
[2019-05-28] MEDS ORDERED: K-RIDER 10 MEQ/NS 100 ML 10 MEQ/100 ML BAG IV PRN (08:24)
[2019-05-28] MEDS ORDERED: POTASSIUM CHLORIDE LIQ 20 MEQ UDC PO PRN (08:24)
[2019-05-28] MEDS: PULMICORT NEB TX 0.5 MG NEB SCH ×2 (08:30→20:19)
[2019-05-28] MEDS ORDERED: FINASTERIDE 5 MG PO SCH (09:00)
[2019-05-28] MEDS ORDERED: MAGNESIUM SULFATE 1 GRAM/100 mL PREMIX 4 G/400 ML BAG IV ONE (09:15)
[2019-05-28] MEDS: MAGNESIUM SULFATE 1 GRAM/100 mL PREMIX 1 GM/100 ML BAG IV PRN ×4 (09:46→14:10)
[2019-05-28] MEDS: CIPRO IV 400 MG PREMIX* 400 MG/200 ML IV.SOLN. IV SCH ×2 (09:46→21:51)
[2019-05-28] MEDS: ZEBETA TAB 5 MG PO SCH (09:47)
[2019-05-28] MEDS: PROSCAR PO SCH (09:47)
[2019-05-28] MEDS: COZAAR PO SCH ×2 (09:47→21:52)
[2019-05-28] MEDS: TROSPIUM 20 MG PO SCH (09:48)
[2019-05-28] MEDS: HYDROCHLOROTHIAZIDE 25 MG TAB PO SCH (09:48)
[2019-05-28] MEDS: SOLU-Medrol 40 MG VIAL IVP SCH ×3 (09:56→21:52)
[2019-05-28 09:58] LABS: FREE T4 (FREE THYROXINE) 1.05 ng/dL (0.76-1.46); TSH (3RD GENERATION) 2.945 uIU/mL (0.358-3.74)
[2019-05-28] MEDS ORDERED: PHARMACY CONSULT - DOSE _____ XX SCH (10:00)
--- NOTE | 2019-05-28 10:11 | PCM.PROG ---
Progress Note - Progress Note for Day of Date of Exam: 05/28/19 - Subjective Subjective: WAS ADMITTED FOR ABDOMINAL PAIN, DIARRHEA, AND DEHYDRATION. TODAY, HE IS ALERT AND ORIENTED, LYING IN BED ON MORNING ROUNDS. HE CONTINUES WITH COMPLAINTS OF ABDOMINAL PAIN AND NAUSEA. ON EXAMINATION, HEART IS REGULAR IN RATE AND RHYTHM. BILATERAL LUNGS ARE NOTED WITH DIMINISHED LUNG SOUNDS THROUGHOUT. ABDOMEN IS ROUND, SOFT, AND NOTED WITH DIFFUSE TENDERNESS. HYPERACTIVE BOWEL SOUNDS ARE NOTED. HIS VITALS THIS MORNING ARE: 98.0-66-20-96%-142/99. LABS WERE OBTAINED. ABNORMAL LAB VALUES INCLUDE THE FOLLOWING: WBC 10.1, RBC 4.58, HCT 41.4, CARBON DIOXIDE 20.0, GLUCOSE 199, CALCIUM 7.9, MAGNESIUM 1.4, ALK PHOS 2.9, CRP 69.80, ESR 19. STOOL STUDIES WERE OBTAINED YESTERDAY AND REVEALED POSITIVE FOR OCCULT BLOOD AND WHITE CELLS. STOOL CULTURES ARE PENDING. AN ABDOMEN/PELVIS CT WAS OBTAINED YESTERDAY AND REVEALED: No acute abnormality identified to explain patient's symptoms. Small left hepatic lobe hypodensity cannot be definitively characterized, but is of doubtful significance. However, this can be followed up non emergently with liver protocol MRI, if clinically indicated. Small hiatal hernia, prostate enlargement, renal cysts, colonic diverticulosis, spine degenerative change. HE IS CURRENTLY RECEIVING NORMAL SALINE AT 125ML/HR, IV CIPRO, IV FLAGYL, IV PEPCID, ZOFRAN 4MG IV Q6H PRN, PHENERGAN 12.5MG IM Q6H PRN, AND HUMULIN SLIDING SCALE. TODAY, WE WILL START SOLU-MEDROL 20MG IV Q8H AND CONTINUE WITH CURRENT PLAN OF CARE FOR TREATMENT OF INFECTIOUS COLITIS. OTHERWISE, WE WILL FOLLOW UP WITH AM LABS AND CONTINUE TO MONITOR. - Past Medical Family Social History Past Med/Fam/Surg Hx: No changes since H&P Allergies: Allergies codeine Adverse Reaction (Verified 05/26/19 18:10) morphine Adverse Reaction (Verified 05/26/19 18:10) - Review of Systems ROS: No change since H&P - Vital Signs and I&O's Vital Signs: Temperature 98 F Pulse Rate [Left] 66 Pulse Rate 75 Respiratory Rate 20 Blood Pressure [Left Arm] 142/99 Blood Pressure 124/67 O2 Sat by Pulse Oximetry 95 Intake and Output: Intake & Output 05/25/19 05/26/19 05/27/19 05/28/19 11:59 11:59 11:59 11:59 Intake Total 1155 / 1155 Balance 1155 / 1155 - Physical Exam Oriented: Normal Eyes: Normal Ear: Normal Nose: Normal Throat: Normal Respiratory: Generalized, Diminished Cardiovascular: Normal : Normal Auscultation: Bowel Sounds: Increased Palpation: Normal Tenderness: Diffuse, Moderate. negative: Rebound, Guarding, Rigidity Skin: Normal Musculoskeletal: Normal Psychiatric: Normal Mood Description: Calm Affect: Normal Speech Pattern: Clear - Laboratory and Diagnostics Result Diagrams: 05/28/19 06:05 05/28/19 06:05 Labs: 05/27/19 13:25 Stool Stool Culture - Preliminary 05/27/19 13:25 Stool - Final Laboratory WBC 10.1 X10^3/uL (3.6-10.0) H 05/28/19 06:05 RBC 4.58 X10^6/uL (4.7-6.0) L 05/28/19 06:05 Hgb 14.3 g/dL (13.5-18.0) 05/28/19 06:05 Hct 41.4 % (42.0-54.0) L 05/28/19 06:05 MCV 90.3 fL (80.0-100.0) 05/28/19 06:05 MCH 31.1 pg (27.0-34.0) 05/28/19 06:05 MCHC 34.5 g/dL (33.0-35.0) 05/28/19 06:05 RDW 13.1 % (11.6-16.5) 05/28/19 06:05 Plt Count 249 X10^3/uL (150.0-450.0) 05/28/19 06:05 Plt Count Comment Adequate (ADEQUATE) 05/28/19 06:05 MPV 7.3 fL (7.4-11.0) L 05/28/19 06:05 Neut % (Auto) 59.9 % (42.0-75.0) 05/28/19 06:05 Lymph % (Auto) 24.1 % (21.0-51.0) 05/28/19 06:05 [place] % (Auto) 13.1 % (0.0-13.0) H 05/28/19 06:05 Eos % (Auto) 2.4 % (0.9-2.9) 05/28/19 06:05 Baso % (Auto) 0.5 % (0.2-1.0) 05/28/19 06:05 Neut # (Auto) 6.1 x10^3/uL (2.2-4.8) H 05/28/19 06:05 Lymph # (Auto) 2.4 X10^3/uL (1.3-2.9) 05/28/19 06:05 [place] # (Auto) 1.3 x10^3/uL (0.3-0.8) H 05/28/19 06:05 Eos # (Auto) 0.2 x10^3/uL (0.0-0.2) 05/28/19 06:05 Baso # (Auto) 0.1 X10^3/uL (0.0-0.1) 05/28/19 06:05 Absolute Nucleated RBC 0.0 /100WBC 05/28/19 06:05 Total Counted 100 05/28/19 06:05 Neutrophils % (Manual) 54 % (39-76) 05/28/19 06:05 Band Neutrophils % 8 % (0-10) 05/28/19 06:05 Lymphocytes % (Manual) 20 % (13-43) 05/28/19 06:05 Monocytes % (Manual) 10 % (4-9) H 05/28/19 06:05 Eosinophils % (Manual) 8 % (0-6) H 05/28/19 06:05 Plt Morphology Comment Normal (NORMAL) 05/28/19 06:05 RBC Morphology Normal (NORMAL) 05/28/19 06:05 ESR 19 MM/HOUR (0-15) H 05/28/19 06:05 Sodium 138 mmol/L (136-145) 05/28/19 06:05 Corrected Sodium 140 mmol/L (136-145) 05/28/19 06:05 Potassium 3.5 mmol/L (3.5-5.1) 05/28/19 06:05 Chloride 106 mmol/L (98-107) 05/28/19 06:05 Carbon Dioxide 20.0 mmol/L (21-32) L 05/28/19 06:05 BUN 13 mg/dL (7-18) 05/28/19 06:05 Creatinine 1.22 mg/dL (0.70-1.30) 05/28/19 06:05 Est GFR (MDRD) Af Amer > 60 (>60) 05/28/19 06:05 Est GFR (MDRD) Non-Af > 60 (>60) 05/28/19 06:05 Glucose 199 mg/dL (65-99) H 05/28/19 06:05 POC Glucose (mg/dL) 143 mg/dL (65-99) H 05/27/19 16:27 Calcium 7.9 mg/dL (8.5-10.1) L 05/28/19 06:05 Corrected Calcium 8.8 mg/dL (8.5-10.1) 05/28/19 06:05 Magnesium 1.4 mg/dL (1.7-2.9) L 05/28/19 06:05 Total Bilirubin 0.30 mg/dL (0.2-1.0) 05/28/19 06:05 AST 21 Units/L (15-37) 05/28/19 06:05 ALT 37 Units/L (12-78) 05/28/19 06:05 Alkaline Phosphatase 45 Units/L (46-116) L 05/28/19 06:05 C-Reactive Protein 69.80 mg/L (0-3.0) H 05/28/19 06:05 Total Protein 6.7 g/dL (6.4-8.2) 05/28/19 06:05 Albumin 2.9 g/dL (3.4-5.0) L 05/28/19 06:05 Globulin 3.8 g/dL (2.5-4.5) 05/28/19 06:05 Albumin/Globulin Ratio 0.8 Ratio (1.1-2.1) L 05/28/19 06:05 Amylase 36 Units/L (25-115) 05/26/19 18:45 Lipase 149 Units/L (73-393) 05/26/19 18:45 Free T4 1.05 ng/dL (0.76-1.46) 05/28/19 06:05 TSH 3rd Generation 2.945 uIU/mL (0.358-3.74) 05/28/19 06:05 Specimen Type Clean catch urine 05/26/19 21:27 Urine Color Dark yellow (YELLOW) 05/26/19 21:27 Urine Appearance Clear (CLEAR) 05/26/19 21:27 Urine pH 5.0 (5.0 - 8.0) 05/26/19 21:27 Ur Specific [place] 1.020 (1.000-1.030) 05/26/19 21:27 Urine Protein 3+ (NEGATIVE) 05/26/19 21:27 Urine Glucose (UA) 1+ (NEGATIVE) 05/26/19 21:27 Urine Ketones Negative (NEGATIVE) 05/26/19 21:27 Urine Occult Blood Negative (NEGATIVE) 05/26/19 21: Urine Nitrite Negative (NEGATIVE) 05/26/19 21: Urine Bilirubin 1+ (NEGATIVE) 05/26/19 21: Urine Urobilinogen 1+ (NORMAL) 05/26/19 21:27 Ur Leukocyte Esterase 1+ (NEGATIVE) 05/26/19 21:27 Urine RBC 0-2 /HPF (0-3) 05/26/19 21:27 Urine WBC 3-5 /HPF (0-5) 05/26/19 21:27 Ur Squamous Epith Cells Few /HPF (NEGATIVE) 05/26/19 21:27 Urine Bacteria Trace /HPF (NEGATIVE) 05/26/19 21:27 Hyaline Casts Few /LPF (NEGATIVE) 05/26/19 21:27 Urine Mucus Few /HPF (NEGATIVE) 05/26/19 21:27 Ur Culture Indicated? No/not indicated 05/26/19 21:27 Stool Description 200g brown liquid 05/27/19 13:25 Stl Occult Blood (IFOB) Positive (NEGATIVE) A 05/27/19 13:25 Stool for White Cells Positive (NEGATIVE) A 05/27/19 13:25 Stl C. diff Tox B Gene Negative (NEGATIVE) 05/27/19 13:25 Stl C. diff [id number] Negative (NEGATIVE) 05/27/19 13:25 Stool H. pylori Ag Negative (NEGATIVE) 05/27/19 13:25 Acetone, Semi-Quant Negative (NEGATIVE) 05/26/19 18:45 Cryptosporid parvum Ag Negative (NEGATIVE) 05/27/19 13:25 Giardia lamblia Ag Negative (NEGATIVE) 05/27/19 13:25 Influenza Type A (PCR) Negative (NEGATIVE) 05/26/19 21:07 Influenza Type B (PCR) Negative (NEGATIVE) 05/26/19 21:07 - Plan (1) Infectious colitis Status: Acute Plan: IV CIPRO, IV FLAGYL, IV FLUIDS, SOLU-MEDROL 20MG IV Q8H, CONTINUE TO MONITOR (2) Dehydration Status: Acute Plan: NORMAL SALINE AT 125ML/HR, CONTINUE TO MONITOR (3) Abdominal pain Status: Acute Qualifiers: Abdominal location: generalized Qualified Code(s): R10.84 - Generalized abdominal pain Plan: CONTINUE TO MONITOR (4) Diarrhea Status: Acute Qualifiers: Diarrhea type: presumed infectious Qualified Code(s): R19.7 - Diarrhea, unspecified Plan: CIPRO IV, FLAGYL IV, CONTINUE TO MONITOR (5) Diabetes mellitus Status: Acute Qualifiers: Diabetes mellitus type: type 2 Diabetes mellitus ad terminal makeup operator insulin use: unspecified assisted insulin use status Diabetes mellitus complication status: without complication Qualified Code(s): E11.9 - Type 2 diabetes mellitus without complications Plan: MONITOR OTBS, HUMULIN R SLIDING SCALE
[2019-05-28] MEDS ORDERED: SNACK - Diabetic Appropriate PO SCH (20:00)
[2019-05-28] MEDS: LANTUS SC SCH (21:51)
[2019-05-28] MEDS: CRESTOR TAB 10 MG PO SCH (21:52)
[2019-05-28] MEDS: HYTRIN PO SCH (21:52)
[2019-05-29] MEDS ORDERED: CATAPRES TAB 0.1 MG ONE (01:15)
[2019-05-29] MEDS ORDERED: CATAPRES TAB 0.1 MG PO PRN (01:16)
[2019-05-29] MEDS: NS 1000 ML 1,000 ML IV SCH (02:40)
[2019-05-29] MEDS ORDERED: NORCO 5/325 MG TAB PO PRN (03:06)
[2019-05-29] MEDS ORDERED: NORCO 5/325 MG TAB ONE (03:07)
[2019-05-29] MEDS: SOLU-Medrol 40 MG VIAL IVP SCH ×2 (05:23→06:29)
[2019-05-29] MEDS: FLAGYL IV PREMIX 500 MG BAG 500 MG/100 ML BAG IV SCH (05:23)
[2019-05-29 05:52] LABS: BASOPHILS # (AUTO) 0.1 X10^3/uL (0.0-0.1); BASOPHILS % (AUTO) 0.5 % (0.2-1.0); HEMATOCRIT 41.3 % (42.0-54.0); HEMOGLOBIN 14.3 g/dL (13.5-18.0); LYMPHOCYTES % (AUTO) 8.6 % (21.0-51.0); MEAN CORPUSCULAR HGB CONC 34.7 g/dL (33.0-35.0); MEAN CORPUSCULAR VOLUME 89.4 fL (80.0-100.0); MEAN PLATELET VOLUME 7.8 fL (7.4-11.0); MONOCYTES # (AUTO) 0.7 x10^3/uL (0.3-0.8); MONOCYTES % (AUTO) 5.6 % (0.0-13.0); NEUTROPHILS # (AUTO) 10.3 x10^3/uL (2.2-4.8); NEUTROPHILS % (AUTO) 85.3 % (42.0-75.0); PLATELET COUNT 243 X10^3/uL (150.0-450.0); RED BLOOD COUNT 4.62 X10^6/uL (4.7-6.0); RED CELL DISTRIBUTION WIDTH 13.2 % (11.6-16.5); WHITE BLOOD COUNT 12.1 X10^3/uL (3.6-10.0)
[2019-05-29 06:06] LABS: ALANINE AMINOTRANSFERASE 42 Units/L (12-78); ALBUMIN 3.2 g/dL (3.4-5.0); ALKALINE PHOSPHATASE 86 Units/L (46-116); ASPARTATE AMINO TRANSFERASE 21 Units/L (15-37); BLOOD UREA NITROGEN 14 mg/dL (7-18); CALCIUM 8.3 mg/dL (8.5-10.1); CARBON DIOXIDE 18.8 mmol/L (21-32); CHLORIDE 102 mmol/L (98-107); COR CA(FOR HYPOALB) 8.9 mg/dL (8.5-10.1); COR NA(FOR HYPERGLY) 139 mmol/L (136-145); CREATININE 1.27 mg/dL (0.70-1.30); SODIUM 134 mmol/L (136-145); TOTAL PROTEIN 7.2 g/dL (6.4-8.2); eGFR NON BLACK RACES 59 (>60)
[2019-05-29] MEDS: HumuLIN R SC PRN (06:30)
[2019-05-29] MEDS: PULMICORT NEB TX 0.5 MG NEB SCH (08:14)
[2019-05-29] MEDS: COZAAR PO SCH (08:32)
[2019-05-29] MEDS: ZEBETA TAB 5 MG PO SCH (08:32)
[2019-05-29] MEDS: CIPRO IV 400 MG PREMIX* 400 MG/200 ML IV.SOLN. IV SCH (08:32)
[2019-05-29] MEDS: HYDROCHLOROTHIAZIDE 25 MG TAB PO SCH (08:33)
[2019-05-29] MEDS: PROSCAR PO SCH (08:33)
[2019-05-29 11:08] VITALS: BP 138/65
== END 2019-05-29 11:34 | disposition home or self-care (01) | DRG 392 ==
LOC: OBS 18:07 → ER 18:07 → OBS 05-27 00:49 → MED/SURG 05-27 16:37
PROVIDERS: ADMIT Internal Medicine; ATTEND Internal Medicine
DX: A09 Infectious gastroenteritis and colitis, unspecified; E11.9 Type 2 diabetes mellitus without complications; E86.0 Dehydration; R10.13 Epigastric pain; Z79.4 Long term (current) use of insulin
CPT/HCPCS: 36415; 74022; 74177; 80053; 81001; 82009; 82150; 82270; 83630; 83690; 83735; 84153; 84154; 84439; 84443; 85025; 85652; 86140; 87040; 87045; 87328; 87329; 87338; 87427; 87449; 87493; 87502; 87899; 94640; 96365; 96367; 96372; 96374; 96375; 99284; A4222; S0028; S0030; S0138; G0378; J0744; J1815; J2405; J2550; J2920; J3475; J7030; J7626

== ENCOUNTER 2021-08-29 14:55 | Observation (INO) ==
[2021-08-29 18:25] VITALS: BMI 35.1
[2021-08-29 18:49] LABS: BASOPHILS % (AUTO) 0.2 % (0.2-1.0); EOSINOPHILS # (AUTO) 0.4 x10^3/uL (0.0-0.2); EOSINOPHILS % (AUTO) 4.1 % (0.9-2.9); HEMATOCRIT 46.6 % (42.0-54.0); HEMOGLOBIN 15.9 g/dL (13.5-18.0); LYMPHOCYTES # (AUTO) 1.8 X10^3/uL (1.3-2.9); LYMPHOCYTES % (AUTO) 18.7 % (21.0-51.0); MEAN CORPUSCULAR HEMOGLOBIN 30.6 pg (27.0-34.0); MEAN CORPUSCULAR VOLUME 89.8 fL (80.0-100.0); MEAN PLATELET VOLUME 7.6 fL (7.4-11.0); MONOCYTES # (AUTO) 1.5 x10^3/uL (0.3-0.8); MONOCYTES % (AUTO) 15.8 % (0.0-13.0); NEUTROPHILS # (AUTO) 5.9 x10^3/uL (2.2-4.8); NEUTROPHILS % (AUTO) 61.2 % (42.0-75.0); PLATELET COUNT 193 X10^3/uL (150.0-450.0); RED BLOOD COUNT 5.19 X10^6/uL (4.7-6.0); WHITE BLOOD COUNT 9.7 X10^3/uL (3.6-10.0)
[2021-08-29 19:01] LABS: ALANINE AMINOTRANSFERASE 28 Units/L (12-78); ALBUMIN 3.2 g/dL (3.4-5.0); ALKALINE PHOSPHATASE 56 Units/L (46-116); AMYLASE 68 Units/L (25-115); ASPARTATE AMINO TRANSFERASE 13 Units/L (15-37); BLOOD UREA NITROGEN 32 mg/dL (7-18); CARBON DIOXIDE 18.3 mmol/L (21-32); CHLORIDE 107 mmol/L (98-107); COR CA(FOR HYPOALB) 8.6 mg/dL (8.5-10.1); CREATININE 1.81 mg/dL (0.70-1.30); LIPASE 238 Units/L (73-393); SODIUM 136 mmol/L (136-145); TOTAL PROTEIN 6.7 g/dL (6.4-8.2); eGFR NON BLACK RACES 39 (>60)
[2021-08-29] MEDS ORDERED: PULMICORT NEB TX 0.5 MG NEB ONE (19:42)
[2021-08-29] MEDS: PROTONIX INJ 40 MG VIAL IVP SCH (20:00)
[2021-08-29] MEDS: NS 1,000 ML IV 1,000 ML IV SCH (20:00)
[2021-08-29] MEDS: PULMICORT NEB TX 0.5 MG NEB SCH (20:22)
[2021-08-29] MEDS: RESTORIL CAP 15 MG PO PRN (21:11)
[2021-08-29] MEDS: SNACK - Diabetic Appropriate PO SCH (21:22)
[2021-08-30 06:22] LABS: BASOPHILS % (AUTO) 0.2 % (0.2-1.0); EOSINOPHILS # (AUTO) 0.4 x10^3/uL (0.0-0.2); EOSINOPHILS % (AUTO) 4.1 % (0.9-2.9); HEMATOCRIT 44.2 % (42.0-54.0); LYMPHOCYTES # (AUTO) 2.2 X10^3/uL (1.3-2.9); LYMPHOCYTES % (AUTO) 23.9 % (21.0-51.0); MEAN CORPUSCULAR HEMOGLOBIN 30.6 pg (27.0-34.0); MEAN CORPUSCULAR HGB CONC 34.1 g/dL (33.0-35.0); MEAN CORPUSCULAR VOLUME 89.9 fL (80.0-100.0); MONOCYTES # (AUTO) 1.3 x10^3/uL (0.3-0.8); MONOCYTES % (AUTO) 14.3 % (0.0-13.0); NEUTROPHILS # (AUTO) 5.2 x10^3/uL (2.2-4.8); NEUTROPHILS % (AUTO) 57.5 % (42.0-75.0); PLATELET COUNT 192 X10^3/uL (150.0-450.0); RED BLOOD COUNT 4.91 X10^6/uL (4.7-6.0); RED CELL DISTRIBUTION WIDTH 13.8 % (11.6-16.5); WHITE BLOOD COUNT 9.1 X10^3/uL (3.6-10.0)
[2021-08-30 06:35] LABS: ALANINE AMINOTRANSFERASE 25 Units/L (12-78); ALKALINE PHOSPHATASE 55 Units/L (46-116); AMYLASE 63 Units/L (25-115); ASPARTATE AMINO TRANSFERASE 12 Units/L (15-37); BLOOD UREA NITROGEN 31 mg/dL (7-18); CALCIUM 7.9 mg/dL (8.5-10.1); CARBON DIOXIDE 15.5 mmol/L (21-32); CHLORIDE 110 mmol/L (98-107); COR CA(FOR HYPOALB) 8.7 mg/dL (8.5-10.1); CREATININE 1.51 mg/dL (0.70-1.30); LIPASE 207 Units/L (73-393); SODIUM 138 mmol/L (136-145); TOTAL PROTEIN 6.3 g/dL (6.4-8.2); eGFR NON BLACK RACES 48 (>60)
[2021-08-30] MEDS: PULMICORT NEB TX 0.5 MG NEB SCH ×2 (09:00→20:20)
[2021-08-30] MEDS: NS 1,000 ML IV 1,000 ML IV SCH ×2 (09:42→22:10)
[2021-08-30] MEDS: PROTONIX INJ 40 MG VIAL IVP SCH (09:42)
--- NOTE | 2021-08-30 10:30 | DR.H&P ---
H&P - History & Physical for Day of: H&P Date: 08/29/21 - Chief Complaint Chief Complaint: DIARRHEA, BLOOD IN STOOL, WEAKNESS, ABDOMINAL PAIN - History of Present Illness History of Present Illness: IS A 76 YEAR OLD PATIENT OF OURS. HE PRESENTED TO THE OFFICE WITH COMPLAINTS OF SEVERE DIARRHEA X 5 DAYS. HE REPORTS HAVING BLOODY STOOLS. PATIENT REPORTS HAVING NUMEROUS EPISODES OF DIARRHEA EACH DAY. HE ADMITS TO LOWER ABDOMINAL PAIN AND RECTAL PAIN. PAIN IS DESCRIBED CRAMPING AND IS CURRENTLY RATED A 5/10. HE DENIES FEVER OR VOMITING. HIS PMH INCLUDES: HTN, CARDIAC STENTS, COPD, SLEEP APNEA, GERD, ARTHRITIS, CHRONIC BACK PAIN, DM II, SKIN CANCER, DEPRESSION, C5 INFUSION, NECK SURGERY, LEFT LEG SURGERY, AND APPENDECTOMY. HE WAS ADMITTED FOR FURTHER EVALUATION AND TREATMENT. ON ARRIVAL TO THE HOSPITAL, VITALS WERE 97.9-67-20-95%-133/71. LABS WERE OBTAINED. WBC 9.7, HGB 15.9, HCT 46.6, SODIUM 136, POTASSIUM 3.9, BUN 32, CREATININE 1.81, CALCIUM 8.0, AST 13, ALBUMIN 3.2, COVID-19 NEGATIVE. STOOL STUDIES WERE OBTAINED. STOOLS WERE POSITIVE FOR OCCULT BLOOD AND WHITE CELLS. STOOL CULTURES WERE SET UP. HE WAS STARTED ON NORMAL SALINE AT 75 ML/HR, PROTONIX 40MG IV DAILY, PEPCID 20MG IV BID, OTBS ACHS, HUMULIN R SLIDING SCALE, AND RESTORIL 15MG PO HS PRN. WE WILL HYDRATE HIM AND PLAN TO OBTAIN AN ABDOMEN/PELVIS CT TODAY. OTHERWISE, WE PLAN TO FOLLOW UP WITH AM LABS AND CONTINUE TO MONITOR. TIME SPENT ON CLINICAL ASSESSMENT, REVIEWING LABS AND IMAGING, DECISION MAKING, AND DOCUMENTATION GREATER THAN 75 MINUTES. - Past Medical History Past Medical History: Angina, Hypertension, Dyslipidemia, Diabetes, Renal Disease, GERD, CHF - Past Surgical History Surgical History: Appendectomy, Ortho Surgery - Family History Family Medical History: Cancer - Social History Does patient currently use any type of tobacco product: No Have you used tobacco products in the last 12 months: No Type of Tobacco Use: None Does any household member use tobacco: No Alcohol Use: None - Medications Home Medications: codeine Adverse Reaction (Verified 05/26/19 18:10) morphine Adverse Reaction (Verified 05/26/19 18:10) CONTINUE taking the following medications amlodipine 10 mg PO HS 08/30/21 [History] budesonide-formoterol [Symbicort] 2 puff INHALATION BID 08/30/21 [History] clopidogrel 75 mg PO DAILY 08/30/21 [History] empagliflozin [Jardiance] 25 mg PO QAM 08/30/21 [History] famotidine 20 mg PO BID 08/30/21 [History] furosemide [Lasix] 30 mg PO PRN PRN 08/30/21 [History] gabapentin 100 mg PO TID 08/30/21 [History] losartan 100 mg PO BID 08/30/21 [History] pantoprazole 40 mg PO HS 08/30/21 [History] polyethylene glycol 3350 [Miralax] 17 g PO Q OTHER DAY PRN 08/30/21 [History] tiotropium bromide [Spiriva Respimat] 1.25 mcg INHALATION DAILY 08/30/21 [History] - Review of Systems Constitutional: Weakness Eyes: No Symptoms Reported ENT: No Symptoms Reported Respiratory: No Symptoms Reported Cardiovascular: No Symptoms Reported Gastrointestinal: See HPI, Nausea, Abdominal Pain, Diarrhea, Melena Genitourinary: No Symptoms Reported Musculoskeletal: No Symptoms Reported Skin: No Symptoms Reported Neurological: Weakness - Physical Exam Vital Signs: Temperature 98 F Pulse Rate [Left Brachial] 63 Pulse Rate 84 Respiratory Rate 22 Blood Pressure [Left Arm] 121/72 O2 Sat by Pulse Oximetry 94 Oriented: Normal Eyes: Normal Ear: Normal Nose: Normal Throat: Normal Respiratory: Diminished Throughout Cardiovascular: Normal : Normal Auscultation: Bowel Sounds: Normal Palpation: Normal Tenderness: RLQ, LLQ, Periumbilical, Mild Skin: Decreased Turgur Musculoskeletal: Normal Psychiatric: Normal Mood Description: Calm Affect: Normal Speech Pattern: Clear - Assessment/Plan (1) Abdominal pain Qualifiers: Abdominal location: lower abdomen, unspecified Qualified Code(s): R10.30 - Lower abdominal pain, unspecified Status: Acute Plan: ADMIT, NORMAL SALINE AT 75 ML/HR, PROTONIX 40MG IV DAILY, PEPCID 20MG IV BID, OTBS ACHS, HUMULIN R SLIDING SCALE, AND RESTORIL 15MG PO HS PRN. (2) Diarrhea Qualifiers: Status: Acute (3) Dehydration Status: Acute - Allergies Allergies/Adverse Reactions: Allergies Allergy/AdvReac Type Severity Reaction Status Date / Time codeine AdvReac Verified 05/26/19 18:10 morphine AdvReac Verified 05/26/19 18:10
[2021-08-30 11:20] LABS: CRYPTOSPORIDIUM PARVUM ANTIGEN NEGATIVE (NEGATIVE); GIARDIA LAMBLIA ANTIGEN NEGATIVE (NEGATIVE)
[2021-08-30] MEDS: PEPCID 20 MG IV PREMIX* 20 MG/50 ML BAG IV SCH ×2 (11:49→20:50)
--- NOTE | 2021-08-30 12:15 | CT ---
HISTORYabd pain, bloody stool; hx of fistulaSTUDYCT abdomen pelvis with IV contrastCOMPARISONCT 05/27/2019TECHNIQUEMultiple axial images of the abdomen and pelvis were obtained from the lung bases to the pubic symphysis after the administration of IV contrast. 100 cc Omnipaque 350 IV contrast. Dose reduction techniques including Automated Exposure Control (AEC) and adjustment of mA and kV were utilized.FINDINGSThe visualized portions of the lung bases suggest minimal atelectasis.Fatty infiltration of the liver. Well-circumscribed low-density lesion in the left hepatic lobe near the falciform ligament measures 1.9 cm in greatest dimension, is similar to prior study. It is most likely a cyst.Probable tiny splenic cyst is stable, also.Gallbladder appears normal. No biliary ductal dilation.No pancreatic abnormality is seen.The adrenal glands appear normal.Exophytic mildly hypodense lesion in the superior pole of the right kidney measures 1.2 cm in greatest axial dimension, unchanged. It is probably a cyst. Other low-density simple appearing cysts are seen bilaterally, similar to prior study. No nephrolithiasis or hydronephrosis is seen. A few phleboliths are seen in the pelvis. Ureters and bladder appear normal.Small hiatus hernia. No evidence of bowel obstruction. Appendix is not seen but no pericecal inflammation is seen.Prostate gland measures 4.9 x 3.8 x 4.8 cm. It has mild mass impression upon the base of the urinary bladder. It is similar to prior study. There is mild fatty distention of the left inguinal canal, unchanged.Abdominal aorta is normal in size.Shotty likely reactive periportal and mesenteric lymph nodes are seen in the abdomen.No free intraperitoneal air or fluid is seen.No acute bony abnormality is seen. Stable simple appearing cyst in the right femoral neck is probably unicameral bone cyst.IMPRESSIONStable small hiatus hernia. No acute GI abnormality is seenThere is fatty infiltration of the liver.Stable probable cysts in the liver, kidneys and spleen.Electronically signed by: Ramez Wilder (Aug 30, 2021 12:13:37)
[2021-08-30] MEDS ORDERED: NITROSTAT SL PRN (12:48)
[2021-08-30] MEDS: PROSCAR PO SCH (14:02)
[2021-08-30] MEDS: ZEBETA TAB 5 MG PO SCH (14:02)
[2021-08-30] MEDS: BENTYL CAP 10 MG PO SCH ×3 (14:02→20:50)
[2021-08-30] MEDS: ZOFRAN INJ 4 MG VIAL IVP PRN (14:03)
[2021-08-30] MEDS: NEURONTIN CAP 100 MG PO SCH ×2 (14:03→21:29)
[2021-08-30] MEDS: PATIENT'S HOME MEDICATION (Trospium 20 mg Tablet) PO SCH ×2 (14:30→20:50)
[2021-08-30] MEDS: COZAAR PO SCH (20:50)
[2021-08-30] MEDS: CRESTOR TAB 10 MG PO SCH (20:51)
[2021-08-30] MEDS: RESTORIL CAP 15 MG PO PRN (20:51)
[2021-08-30] MEDS: HYTRIN PO SCH (20:51)
[2021-08-30] MEDS: NORVASC TAB 10 MG PO SCH (20:51)
[2021-08-30] MEDS: SNACK - Diabetic Appropriate PO SCH (20:51)
[2021-08-31] MEDS: NEURONTIN CAP 100 MG PO SCH ×3 (05:46→21:25)
[2021-08-31 06:54] LABS: BASOPHILS % (AUTO) 0.3 % (0.2-1.0); EOSINOPHILS # (AUTO) 0.2 x10^3/uL (0.0-0.2); EOSINOPHILS % (AUTO) 3.1 % (0.9-2.9); HEMATOCRIT 40.3 % (42.0-54.0); LYMPHOCYTES # (AUTO) 1.6 X10^3/uL (1.3-2.9); LYMPHOCYTES % (AUTO) 20.9 % (21.0-51.0); MEAN CORPUSCULAR HGB CONC 34.7 g/dL (33.0-35.0); MEAN CORPUSCULAR VOLUME 89.5 fL (80.0-100.0); MEAN PLATELET VOLUME 8.8 fL (7.4-11.0); MONOCYTES % (AUTO) 12.9 % (0.0-13.0); NEUTROPHILS # (AUTO) 4.9 x10^3/uL (2.2-4.8); NEUTROPHILS % (AUTO) 62.8 % (42.0-75.0); PLATELET COUNT 173 X10^3/uL (150.0-450.0); RED CELL DISTRIBUTION WIDTH 13.8 % (11.6-16.5); WHITE BLOOD COUNT 7.8 X10^3/uL (3.6-10.0)
[2021-08-31 07:23] LABS: ALANINE AMINOTRANSFERASE 23 Units/L (12-78); ALBUMIN 2.8 g/dL (3.4-5.0); ALKALINE PHOSPHATASE 52 Units/L (46-116); ASPARTATE AMINO TRANSFERASE 14 Units/L (15-37); BLOOD UREA NITROGEN 24 mg/dL (7-18); CARBON DIOXIDE 16.3 mmol/L (21-32); CHLORIDE 112 mmol/L (98-107); COR NA(FOR HYPERGLY) 140 mmol/L (136-145); CREATININE 1.28 mg/dL (0.70-1.30); SODIUM 139 mmol/L (136-145); eGFR NON BLACK RACES 58 (>60)
[2021-08-31] MEDS: ZOFRAN INJ 4 MG VIAL IVP PRN (08:33)
[2021-08-31] MEDS: PEPCID 20 MG IV PREMIX* 20 MG/50 ML BAG IV SCH ×2 (09:00→21:25)
[2021-08-31] MEDS: BENTYL CAP 10 MG PO SCH ×4 (09:01→21:24)
[2021-08-31] MEDS: PROTONIX INJ 40 MG VIAL IVP SCH (09:01)
[2021-08-31] MEDS: COZAAR PO SCH ×2 (09:01→21:24)
[2021-08-31] MEDS: ZEBETA TAB 5 MG PO SCH (09:02)
[2021-08-31] MEDS: PROSCAR PO SCH (09:02)
[2021-08-31] MEDS: PATIENT'S HOME MEDICATION (Trospium 20 mg Tablet) PO SCH ×2 (09:02→21:25)
[2021-08-31] MEDS: PATIENT'S HOME MEDICATION (Empagliflozin [Jardiance] 25 mg Tablet) PO SCH (09:02)
[2021-08-31] MEDS: PULMICORT NEB TX 0.5 MG NEB SCH ×2 (09:05→20:47)
--- NOTE | 2021-08-31 10:26 | PCM.PROG ---
Progress Note - Progress Note for Day of Date of Exam: 08/31/21 - Subjective Subjective: IS BEING TREATED FOR COLITIS AND DEHYDRATION. TODAY, HE IS ALERT AND ORIENTED, LYING IN BED ON MORNING ROUNDS. HE CONTINUES WITH COMPLAINTS OF ABDOMINAL CRAMPING, WEAKNESS, SLIGHT DIZZINESS, AND BLOOD IN STOOLS. HE DOES ADMIT TO SLIGHT IMPROVEMENT IN SYMPTOMS SINCE ADMISSION. ON EXAMINATION, HEART IS REGULAR IN RATE AND RHYTHM. BILATERAL LUNGS ARE NOTED WITH DIMINISHED LUNG SOUNDS THROUGHOUT. ABDOMEN IS ROUND, SOFT, AND NOTED WITH TENDERNESS TO THE LOWER QUADRANTS. NORMAL BOWEL SOUNDS ARE NOTED. HIS VITALS THIS MORNING ARE: 97.8-80-20-100%-140/70. LABS WERE OBTAINED. ABNORMAL LAB VALUES INCLUDE THE FOLLOWING: RBC 4.50, HCT 40.3, CHLORIDE 112, CARBON DIOXIDE 16.3, BUN 24, GLUC OSE 130, CALCIUM 8.0, AST 14, TOTAL PROTEIN 6.0, ALBUMIN 2.8. STOOLS POSITIVE FOR OCCULT BLOOD AND WHITE CELLS. STOOL CULTURE IS PENDING. HE IS CURRENTLY RECEIVING NORMAL SALINE AT 75 ML/HR, PROTONIX 40MG IV DAILY, PEPCID 20MG IV BID, ZOFRAN 4MG IV Q4H PRN, BENTYL 20MG PO QID, OTBS ACHS, HUMULIN R SLIDING SCALE, AND RESTORIL 15MG PO HS PRN. TODAY, WE WILL ADD FORTAZ 1G IV Q8H AND LEVAQUIN 500MG IV DAILY. OTHERWISE, WE WILL CONTINUE WITH CURRENT PLAN OF CARE. WE PLAN TO FOLLOW UP WITH AM LABS AND CONTINUE TO MONITOR. TIME SPENT ON CLINICAL ASSESSMENT, REVIEWING LABS AND IMAGING, DECISION MAKING, AND DOCUMENTATION GREATER THAN 45 MINUTES. - Past Medical Family Social History Past Med/Fam/Surg Hx: No changes since H&P Allergies: Allergies codeine Adverse Reaction (Verified 05/26/19 18:10) morphine Adverse Reaction (Verified 05/26/19 18:10) - Review of Systems ROS: No change since H&P - Vital Signs and I&O's Vital Signs: Temperature 97.8 F Pulse Rate [Left Brachial] 80 Pulse Rate 67 Respiratory Rate 20 Blood Pressure [Left Arm] 140/70 O2 Sat by Pulse Oximetry 93 Intake and Output: Intake & Output 08/28/21 08/29/21 08/30/21 08/31/21 11:59 11:59 11:59 11:59 Intake Total 1090 / 1090 2363 / 2362 Output Total 600 / 600 Balance 490 / 490 2362 / 2362 - Physical Exam Oriented: Normal Eyes: Normal Ear: Normal Nose: Normal Throat: Normal Respiratory: Generalized, Diminished Cardiovascular: Normal : Normal Auscultation: Bowel Sounds: Normal Palpation: Normal Tenderness: RLQ, LLQ, Mild Skin: Decreased Turgur Musculoskeletal: Normal Psychiatric: Normal Mood Description: Calm Affect: Normal Speech Pattern: Clear, Appropriate - Laboratory and Diagnostics Result Diagrams: 08/31/21 05:20 08/31/21 05:20 Labs: 08/30/21 09:28 Stool Stool Culture - Preliminary 08/30/21 09:28 Stool - Final Laboratory WBC 7.8 X10^3/uL (3.6-10.0) 08/31/21 05:20 RBC 4.50 X10^6/uL (4.7-6.0) L 08/31/21 05:20 Hgb 14.0 g/dL (13.5-18.0) 08/31/21 05:20 Hct 40.3 % (42.0-54.0) L 08/31/21 05:20 MCV 89.5 fL (80.0-100.0) 08/31/21 05:20 MCH 31.0 pg (27.0-34.0) 08/31/21 05:20 MCHC 34.7 g/dL (33.0-35.0) 08/31/21 05:20 RDW 13.8 % (11.6-16.5) 08/31/21 05:20 Plt Count 173 X10^3/uL (150.0-450.0) 08/31/21 05:20 MPV 8.8 fL (7.4-11.0) 08/31/21 05:20 Neut % (Auto) 62.8 % (42.0-75.0) 08/31/21 05:20 Lymph % (Auto) 20.9 % (21.0-51.0) L 08/31/21 05:20 [place] % (Auto) 12.9 % (0.0-13.0) 08/31/21 05:20 Eos % (Auto) 3.1 % (0.9-2.9) H 08/31/21 05:20 Baso % (Auto) 0.3 % (0.2-1.0) 08/31/21 05:20 Neut # (Auto) 4.9 x10^3/uL (2.2-4.8) H 08/31/21 05:20 Lymph # (Auto) 1.6 X10^3/uL (1.3-2.9) 08/31/21 05:20 [place] # (Auto) 1.0 x10^3/uL (0.3-0.8) H 08/31/21 05:20 Eos # (Auto) 0.2 x10^3/uL (0.0-0.2) 08/31/21 05:20 Baso # (Auto) 0.0 X10^3/uL (0.0-0.1) 08/31/21 05:20 Absolute Nucleated RBC 0.1 /100WBC 08/31/21 05:20 Sodium 139 mmol/L (136-145) 08/31/21 05:20 Corrected Sodium 140 mmol/L (136-145) 08/31/21 05:20 Potassium 3.7 mmol/L (3.5-5.1) 08/31/21 05:20 Chloride 112 mmol/L (98-107) H 08/31/21 05:20 Carbon Dioxide 16.3 mmol/L (21-32) L 08/31/21 05:20 BUN 24 mg/dL (7-18) H 08/31/21 05:20 Creatinine 1.28 mg/dL (0.70-1.30) 08/31/21 05:20 Est GFR (MDRD) Af Amer > 60 (>60) 08/31/21 05:20 Est GFR (MDRD) Non-Af 58 (>60) L 08/31/21 05:20 Glucose 130 mg/dL (65-99) H 08/31/21 05:20 POC Glucose (mg/dL) 137 mg/dL (65-99) H 08/31/21 05:21 Calcium 8.0 mg/dL (8.5-10.1) L 08/31/21 05:20 Corrected Calcium 9.0 mg/dL (8.5-10.1) 08/31/21 05:20 Total Bilirubin 0.30 mg/dL (0.2-1.0) 08/31/21 05:20 AST 14 Units/L (15-37) L 08/31/21 05:20 ALT 23 Units/L (12-78) 08/31/21 05:20 Alkaline Phosphatase 52 Units/L (46-116) 08/31/21 05:20 Total Protein 6.0 g/dL (6.4-8.2) L 08/31/21 05:20 Albumin 2.8 g/dL (3.4-5.0) L 08/31/21 05:20 Globulin 3.2 g/dL (2.5-4.5) 08/31/21 05:20 Albumin/Globulin Ratio 0.9 Ratio (1.1-2.1) L 08/31/21 05:20 Amylase 63 Units/L (25-115) 08/30/21 05:44 Lipase 207 Units/L (73-393) 08/30/21 05:44 Stool Description 6g semiloose browngr 08/30/21 09:28 Stool Description Fob tube 08/30/21 09:28 Stl Occult Blood (IFOB) Positive (NEGATIVE) A 08/30/21 09:28 Stool for White Cells Positive (NEGATIVE) A 08/30/21 09:28 Stl C. diff Tox B Gene Negative (NEGATIVE) 08/30/21 09:28 Stl C. diff [id number] Presumptive negative (NEGATIVE) 08/30/21 09:28 Cryptosporid parvum Ag Negative (NEGATIVE) 08/30/21 09:28 Giardia lamblia Ag Negative (NEGATIVE) 08/30/21 09:28 SARS CoV-2 RNA Rapid DEMI Negative (NEGATIVE) 08/29/21 16:25 - Plan (1) Colitis Status: Acute (2) Abdominal pain Status: Acute Qualifiers: Abdominal location: lower abdomen, unspecified Qualified Code(s): R10.30 - Lower abdominal pain, unspecified Plan: NORMAL SALINE AT 75 ML/HR, FORTAZ, LEVAQUIN, PROTONIX 40MG IV DAILY, PEPCID 20MG IV BID, ZOFRAN 4MG IV Q4H PRN, BENTYL 20MG PO QID, OTBS ACHS, HUMULIN R SLIDING SCALE, AND RESTORIL 15MG PO HS PRN. (3) Diarrhea Status: Acute Qualifiers: (4) Dehydration Status: Acute
[2021-08-31] MEDS: LEVAQUIN PREMIX IV 500 MG 500 MG/100 ML BAG IV SCH (10:34)
[2021-08-31] MEDS: FORTAZ or TAZICEF VIAL INJ 1 G in NS 100 ML IV + SPIKE MINIBAG* 100 ML IV SCH ×3 (11:20→22:20)
[2021-08-31] MEDS: NS 1,000 ML IV 1,000 ML IV SCH ×2 (15:29→21:26)
[2021-08-31] MEDS: SNACK - Diabetic Appropriate PO SCH (20:20)
[2021-08-31] MEDS: HYTRIN PO SCH (21:25)
[2021-08-31] MEDS: NORVASC TAB 10 MG PO SCH (21:25)
[2021-08-31] MEDS: CRESTOR TAB 10 MG PO SCH (21:25)
[2021-08-31] MEDS: NovoLIN R (or HumuLIN R) SUBCUT PRN ×2 (21:27→21:28)
[2021-09-01] MEDS ORDERED: VALIUM PO ONE (02:40)
[2021-09-01] MEDS ORDERED: VALIUM ONE (02:41)
[2021-09-01] MEDS: FORTAZ or TAZICEF VIAL INJ 1 G in NS 100 ML IV + SPIKE MINIBAG* 100 ML IV SCH ×3 (05:04→22:10)
[2021-09-01] MEDS: NS 1,000 ML IV 1,000 ML IV SCH ×2 (05:04→16:42)
[2021-09-01] MEDS: NEURONTIN CAP 100 MG PO SCH ×3 (05:04→21:36)
[2021-09-01 06:38] LABS: BASOPHILS % (AUTO) 0.2 % (0.2-1.0); EOSINOPHILS # (AUTO) 0.2 x10^3/uL (0.0-0.2); EOSINOPHILS % (AUTO) 1.8 % (0.9-2.9); HEMATOCRIT 40.1 % (42.0-54.0); HEMOGLOBIN 13.8 g/dL (13.5-18.0); LYMPHOCYTES # (AUTO) 1.8 X10^3/uL (1.3-2.9); LYMPHOCYTES % (AUTO) 20.2 % (21.0-51.0); MEAN CORPUSCULAR HEMOGLOBIN 30.2 pg (27.0-34.0); MEAN CORPUSCULAR HGB CONC 34.3 g/dL (33.0-35.0); MEAN PLATELET VOLUME 8.2 fL (7.4-11.0); MONOCYTES # (AUTO) 1.1 x10^3/uL (0.3-0.8); MONOCYTES % (AUTO) 11.6 % (0.0-13.0); NEUTROPHILS % (AUTO) 66.2 % (42.0-75.0); PLATELET COUNT 196 X10^3/uL (150.0-450.0); RED BLOOD COUNT 4.56 X10^6/uL (4.7-6.0); RED CELL DISTRIBUTION WIDTH 13.8 % (11.6-16.5); WHITE BLOOD COUNT 9.1 X10^3/uL (3.6-10.0)
[2021-09-01 06:58] LABS: ALANINE AMINOTRANSFERASE 23 Units/L (12-78); ALBUMIN 2.9 g/dL (3.4-5.0); ALKALINE PHOSPHATASE 52 Units/L (46-116); ASPARTATE AMINO TRANSFERASE 13 Units/L (15-37); BLOOD UREA NITROGEN 16 mg/dL (7-18); CALCIUM 8.1 mg/dL (8.5-10.1); CARBON DIOXIDE 15.2 mmol/L (21-32); CHLORIDE 111 mmol/L (98-107); COR NA(FOR HYPERGLY) 140 mmol/L (136-145); CREATININE 1.25 mg/dL (0.70-1.30); SODIUM 139 mmol/L (136-145); TOTAL PROTEIN 6.1 g/dL (6.4-8.2); eGFR NON BLACK RACES 60 (>60)
[2021-09-01] MEDS: PATIENT'S HOME MEDICATION (Empagliflozin [Jardiance] 25 mg Tablet) PO SCH (08:09)
[2021-09-01] MEDS: COZAAR PO SCH ×2 (08:09→21:33)
[2021-09-01] MEDS: BENTYL CAP 10 MG PO SCH ×4 (08:09→21:33)
[2021-09-01] MEDS: LEVAQUIN PREMIX IV 500 MG 500 MG/100 ML BAG IV SCH (08:10)
[2021-09-01] MEDS: PROTONIX INJ 40 MG VIAL IVP SCH (08:10)
[2021-09-01] MEDS: PROSCAR PO SCH (08:10)
[2021-09-01] MEDS: PEPCID 20 MG IV PREMIX* 20 MG/50 ML BAG IV SCH ×2 (08:10→21:35)
[2021-09-01] MEDS: ZEBETA TAB 5 MG PO SCH (08:11)
[2021-09-01] MEDS: PATIENT'S HOME MEDICATION (Trospium 20 mg Tablet) PO SCH ×2 (08:11→21:35)
[2021-09-01] MEDS: PULMICORT NEB TX 0.5 MG NEB SCH ×2 (09:51→20:25)
[2021-09-01] MEDS: NovoLIN R (or HumuLIN R) SUBCUT PRN ×2 (12:01→16:42)
[2021-09-01] MEDS ORDERED: TORADOL 30 MG VIAL ONE (13:00)
[2021-09-01] MEDS: TORADOL 30 MG VIAL IVP SCH ×2 (13:07→21:35)
[2021-09-01] MEDS: SNACK - Diabetic Appropriate PO SCH (20:10)
[2021-09-01] MEDS: NORVASC TAB 10 MG PO SCH (21:34)
[2021-09-01] MEDS: HYTRIN PO SCH (21:34)
[2021-09-01] MEDS: CRESTOR TAB 10 MG PO SCH (21:34)
[2021-09-02] MEDS: FORTAZ or TAZICEF VIAL INJ 1 G in NS 100 ML IV + SPIKE MINIBAG* 100 ML IV SCH ×3 (05:24→21:40)
[2021-09-02] MEDS: NEURONTIN CAP 100 MG PO SCH ×3 (05:24→21:49)
[2021-09-02] MEDS: TORADOL 30 MG VIAL IVP SCH ×3 (05:25→21:51)
[2021-09-02 06:33] LABS: BASOPHILS % (AUTO) 0.5 % (0.2-1.0); EOSINOPHILS # (AUTO) 0.2 x10^3/uL (0.0-0.2); HEMATOCRIT 39.7 % (42.0-54.0); HEMOGLOBIN 13.7 g/dL (13.5-18.0); LYMPHOCYTES # (AUTO) 2.1 X10^3/uL (1.3-2.9); LYMPHOCYTES % (AUTO) 21.7 % (21.0-51.0); MEAN CORPUSCULAR HEMOGLOBIN 30.7 pg (27.0-34.0); MEAN CORPUSCULAR HGB CONC 34.4 g/dL (33.0-35.0); MEAN PLATELET VOLUME 8.4 fL (7.4-11.0); MONOCYTES # (AUTO) 1.2 x10^3/uL (0.3-0.8); NEUTROPHILS # (AUTO) 6.3 x10^3/uL (2.2-4.8); NEUTROPHILS % (AUTO) 63.8 % (42.0-75.0); PLATELET COUNT 192 X10^3/uL (150.0-450.0); RED BLOOD COUNT 4.46 X10^6/uL (4.7-6.0); RED CELL DISTRIBUTION WIDTH 13.9 % (11.6-16.5); WHITE BLOOD COUNT 9.8 X10^3/uL (3.6-10.0)
[2021-09-02 06:48] LABS: ALANINE AMINOTRANSFERASE 22 Units/L (12-78); ALBUMIN 2.6 g/dL (3.4-5.0); ALKALINE PHOSPHATASE 47 Units/L (46-116); ASPARTATE AMINO TRANSFERASE 10 Units/L (15-37); BLOOD UREA NITROGEN 15 mg/dL (7-18); CALCIUM 8.1 mg/dL (8.5-10.1); CARBON DIOXIDE 17.5 mmol/L (21-32); CHLORIDE 111 mmol/L (98-107); COR CA(FOR HYPOALB) 9.2 mg/dL (8.5-10.1); COR NA(FOR HYPERGLY) 140 mmol/L (136-145); CREATININE 1.17 mg/dL (0.70-1.30); SODIUM 139 mmol/L (136-145); TOTAL PROTEIN 5.9 g/dL (6.4-8.2); eGFR NON BLACK RACES > 60 (>60)
[2021-09-02] MEDS: PULMICORT NEB TX 0.5 MG NEB SCH ×2 (09:00→21:44)
[2021-09-02] MEDS: COZAAR PO SCH ×2 (09:18→21:49)
[2021-09-02] MEDS: BENTYL CAP 10 MG PO SCH ×3 (09:18→21:49)
[2021-09-02] MEDS: PROTONIX INJ 40 MG VIAL IVP SCH (09:19)
[2021-09-02] MEDS: ZEBETA TAB 5 MG PO SCH (09:19)
[2021-09-02] MEDS: PEPCID 20 MG IV PREMIX* 20 MG/50 ML BAG IV SCH ×2 (09:20→21:50)
[2021-09-02] MEDS: PROSCAR PO SCH (09:20)
[2021-09-02] MEDS: LEVAQUIN PREMIX IV 500 MG 500 MG/100 ML BAG IV SCH ×2 (09:20→09:50)
[2021-09-02] MEDS: PATIENT'S HOME MEDICATION (Empagliflozin [Jardiance] 25 mg Tablet) PO SCH (09:51)
[2021-09-02] MEDS: NS 1,000 ML IV 1,000 ML IV SCH (09:51)
[2021-09-02] MEDS: PATIENT'S HOME MEDICATION (Trospium 20 mg Tablet) PO SCH ×2 (09:51→21:53)
[2021-09-02] MEDS: NovoLIN R (or HumuLIN R) SUBCUT PRN ×4 (12:58→21:40)
--- NOTE | 2021-09-02 16:50 | PCM.PROG ---
Progress Note - Progress Note for Day of Date of Exam: 09/01/21 - Subjective Subjective: IS BEING TREATED FOR COLITIS AND DEHYDRATION. TODAY, HE IS ALERT AND ORIENTED, LYING IN BED ON MORNING ROUNDS. HE CONTINUES WITH COMPLAINTS OF ABDOMINAL CRAMPING, WEAKNESS, SLIGHT DIZZINESS, AND BLOOD IN STOOLS. HE DOES ADMIT TO SLIGHT IMPROVEMENT IN SYMPTOMS SINCE ADMISSION. ON EXAMINATION, HEART IS REGULAR IN RATE AND RHYTHM. BILATERAL LUNGS ARE NOTED WITH DIMINISHED LUNG SOUNDS THROUGHOUT. ABDOMEN IS ROUND, SOFT, AND NOTED WITH TENDERNESS TO THE LOWER QUADRANTS. NORMAL BOWEL SOUNDS ARE NOTED. HIS VITALS THIS MORNING ARE: 99.3-84-20-93%-127/79. LABS WERE OBTAINED. ABNORMAL LAB VALUES INCLUDE THE FOLLOWING: RBC 4.56, HCT 40.1, CHLORIDE 111, CARBON DIOXIDE 15.2, GLUCOSE 134, CALCIUM 8.1, AST 13, TOTAL PROTEIN 6.1, ALBUMIN 2.9. STOOLS POSITIVE FOR OCCULT BLOOD AND WHITE CELLS. STOOL CULTURE IS PENDING. HE IS CURRENTLY RECEIVING NORMAL SALINE AT 75 ML/HR, FORTAZ 1G IV Q8H, LEVAQUIN 500MG IV DAILY, PROTONIX 40MG IV DAILY, PEPCID 20MG IV BID, ZOFRAN 4MG IV Q4H PRN, BENTYL 20MG PO QID, OTBS ACHS, HUMULIN R SLIDING SCALE, AND RESTORIL 15MG PO HS PRN. TODAY, WE WILL ADD TORADOL 30MG IV Q8H ZAHIDA. OTHERWISE, WE WILL CONTINUE WITH CURRENT PLAN OF CARE. WE PLAN TO FOLLOW UP WITH AM LABS AND CONTINUE TO MONITOR. TIME SPENT ON CLINICAL ASSESSMENT, REVIEWING LABS AND IMAGING, DECISION MAKING, AND DOCUMENTATION GREATER THAN 45 MINUTES. - Past Medical Family Social History Past Med/Fam/Surg Hx: No changes since H&P Allergies: Allergies codeine Adverse Reaction (Verified 05/26/19 18:10) morphine Adverse Reaction (Verified 05/26/19 18:10) - Review of Systems ROS: No change since H&P - Vital Signs and I&O's Vital Signs: Temperature 97.5 F Pulse Rate [Left Brachial] 69 Pulse Rate 73 Respiratory Rate 18 Blood Pressure [Left Arm] 136/79 O2 Sat by Pulse Oximetry 96 Intake and Output: Intake & Output 08/31/21 09/01/21 09/02/21 09/03/21 11:59 11:59 11:59 11:59 Intake Total 2363 / 2363 3296 / 3296 3304 / 3304 Balance 2363 / 2363 3296 / 3296 3304 / 3304 - Physical Exam Oriented: Normal Eyes: Normal Ear: Normal Nose: Normal Throat: Normal Respiratory: Generalized, Diminished Cardiovascular: Normal : Normal Auscultation: Bowel Sounds: Normal Palpation: Normal Tenderness: RLQ, LLQ, Mild Skin: Decreased Turgur Musculoskeletal: Normal Psychiatric: Normal Mood Description: Calm Affect: Normal Speech Pattern: Clear, Appropriate - Laboratory and Diagnostics Result Diagrams: 09/02/21 05:26 09/02/21 05:26 Labs: 08/30/21 09:28 Stool Stool Culture - Final 08/30/21 09:28 Stool - Final Laboratory WBC 9.8 X10^3/uL (3.6-10.0) 09/02/21 05:26 RBC 4.46 X10^6/uL (4.7-6.0) L 09/02/21 05:26 Hgb 13.7 g/dL (13.5-18.0) 09/02/21 05:26 Hct 39.7 % (42.0-54.0) L 09/02/21 05:26 MCV 89.0 fL (80.0-100.0) 09/02/21 05:26 MCH 30.7 pg (27.0-34.0) 09/02/21 05:26 MCHC 34.4 g/dL (33.0-35.0) 09/02/21 05:26 RDW 13.9 % (11.6-16.5) 09/02/21 05:26 Plt Count 192 X10^3/uL (150.0-450.0) 09/02/21 05:26 MPV 8.4 fL (7.4-11.0) 09/02/21 05:26 Neut % (Auto) 63.8 % (42.0-75.0) 09/02/21 05:26 Lymph % (Auto) 21.7 % (21.0-51.0) 09/02/21 05:26 [place] % (Auto) 12.0 % (0.0-13.0) 09/02/21 05:26 Eos % (Auto) 2.0 % (0.9-2.9) 09/02/21 05:26 Baso % (Auto) 0.5 % (0.2-1.0) 09/02/21 05:26 Neut # (Auto) 6.3 x10^3/uL (2.2-4.8) H 09/02/21 05:26 Lymph # (Auto) 2.1 X10^3/uL (1.3-2.9) 09/02/21 05:26 [place] # (Auto) 1.2 x10^3/uL (0.3-0.8) H 09/02/21 05:26 Eos # (Auto) 0.2 x10^3/uL (0.0-0.2) 09/02/21 05:26 Baso # (Auto) 0.0 X10^3/uL (0.0-0.1) 09/02/21 05:26 Absolute Nucleated RBC 0.0 /100WBC 09/02/21 05:26 Sodium 139 mmol/L (136-145) 09/02/21 05:26 Corrected Sodium 140 mmol/L (136-145) 09/02/21 05:26 Potassium 3.5 mmol/L (3.5-5.1) 09/02/21 05:26 Chloride 111 mmol/L (98-107) H 09/02/21 05:26 Carbon Dioxide 17.5 mmol/L (21-32) L 09/02/21 05:26 BUN 15 mg/dL (7-18) 09/02/21 05:26 Creatinine 1.17 mg/dL (0.70-1.30) 09/02/21 05:26 Est GFR (MDRD) Af Amer > 60 (>60) 09/02/21 05:26 Est GFR (MDRD) Non-Af > 60 (>60) 09/02/21 05:26 Glucose 129 mg/dL (65-99) H 09/02/21 05:26 POC Glucose (mg/dL) 151 mg/dL (65-99) H 09/02/21 16:33 Calcium 8.1 mg/dL (8.5-10.1) L 09/02/21 05:26 Corrected Calcium 9.2 mg/dL (8.5-10.1) 09/02/21 05:26 Total Bilirubin 0.40 mg/dL (0.2-1.0) 09/02/21 05:26 AST 10 Units/L (15-37) L 09/02/21 05:26 ALT 22 Units/L (12-78) 09/02/21 05:26 Alkaline Phosphatase 47 Units/L (46-116) 09/02/21 05:26 Total Protein 5.9 g/dL (6.4-8.2) L 09/02/21 05:26 Albumin 2.6 g/dL (3.4-5.0) L 09/02/21 05:26 Globulin 3.3 g/dL (2.5-4.5) 09/02/21 05:26 Albumin/Globulin Ratio 0.8 Ratio (1.1-2.1) L 09/02/21 05:26 Amylase 63 Units/L (25-115) 08/30/21 05:44 Lipase 207 Units/L (73-393) 08/30/21 05:44 Stool Description 6g semiloose browngr 08/30/21 09:28 Stool Description Fob tube 08/30/21 09:28 Stl Occult Blood (IFOB) Positive (NEGATIVE) A 08/30/21 09:28 Stool for White Cells Positive (NEGATIVE) A 08/30/21 09:28 Stl C. diff Tox B Gene Negative (NEGATIVE) 08/30/21 09:28 Stl C. diff [id number] Presumptive negative (NEGATIVE) 08/30/21 09:28 Cryptosporid parvum Ag Negative (NEGATIVE) 08/30/21 09:28 Giardia lamblia Ag Negative (NEGATIVE) 08/30/21 09:28 SARS CoV-2 RNA Rapid DEMI Negative (NEGATIVE) 08/29/21 16:25 - Plan (1) Colitis Status: Acute Plan: NORMAL SALINE AT 75 ML/HR, FORTAZ, LEVAQUIN, PROTONIX 40MG IV DAILY, PEPCID 20MG IV BID, ZOFRAN 4MG IV Q4H PRN, TORADOL 30MG IV Q8H ZAHIDA, BENTYL 20MG PO QID, OTBS ACHS, HUMULIN R SLIDING SCALE, AND RESTORIL 15MG PO HS PRN. (2) Abdominal pain Status: Acute Qualifiers: Abdominal location: lower abdomen, unspecified Qualified Code(s): R10.30 - Lower abdominal pain, unspecified (3) Diarrhea Status: Acute Qualifiers: Diarrhea type: unspecified type Qualified Code(s): R19.7 - Diarrhea, unspec ified (4) Dehydration Status: Acute
[2021-09-02] MEDS: SNACK - Diabetic Appropriate PO SCH (20:40)
[2021-09-02] MEDS: RESTORIL CAP 15 MG PO PRN (21:40)
[2021-09-02] MEDS: CRESTOR TAB 10 MG PO SCH (21:50)
[2021-09-02] MEDS: NORVASC TAB 10 MG PO SCH (21:50)
[2021-09-02] MEDS: HYTRIN PO SCH (21:50)
[2021-09-03] MEDS: FORTAZ or TAZICEF VIAL INJ 1 G in NS 100 ML IV + SPIKE MINIBAG* 100 ML IV SCH (05:15)
[2021-09-03] MEDS: TORADOL 30 MG VIAL IVP SCH (05:30)
[2021-09-03] MEDS: NEURONTIN CAP 100 MG PO SCH (05:30)
[2021-09-03] MEDS: NS 1,000 ML IV 1,000 ML IV SCH ×3 (06:01→10:33)
[2021-09-03 06:11] LABS: BASOPHILS % (AUTO) 0.5 % (0.2-1.0); EOSINOPHILS # (AUTO) 0.3 x10^3/uL (0.0-0.2); EOSINOPHILS % (AUTO) 3.2 % (0.9-2.9); HEMATOCRIT 39.4 % (42.0-54.0); HEMOGLOBIN 13.4 g/dL (13.5-18.0); LYMPHOCYTES % (AUTO) 24.8 % (21.0-51.0); MEAN CORPUSCULAR HEMOGLOBIN 30.4 pg (27.0-34.0); MEAN CORPUSCULAR HGB CONC 34.1 g/dL (33.0-35.0); MEAN PLATELET VOLUME 7.9 fL (7.4-11.0); MONOCYTES # (AUTO) 0.9 x10^3/uL (0.3-0.8); MONOCYTES % (AUTO) 11.2 % (0.0-13.0); NEUTROPHILS % (AUTO) 60.3 % (42.0-75.0); PLATELET COUNT 205 X10^3/uL (150.0-450.0); RED BLOOD COUNT 4.42 X10^6/uL (4.7-6.0); RED CELL DISTRIBUTION WIDTH 13.8 % (11.6-16.5); WHITE BLOOD COUNT 8.2 X10^3/uL (3.6-10.0)
[2021-09-03 06:20] LABS: ALANINE AMINOTRANSFERASE 22 Units/L (12-78); ALBUMIN 2.6 g/dL (3.4-5.0); ALKALINE PHOSPHATASE 47 Units/L (46-116); ASPARTATE AMINO TRANSFERASE 14 Units/L (15-37); BLOOD UREA NITROGEN 14 mg/dL (7-18); CALCIUM 8.2 mg/dL (8.5-10.1); CARBON DIOXIDE 18.2 mmol/L (21-32); CHLORIDE 110 mmol/L (98-107); COR CA(FOR HYPOALB) 9.3 mg/dL (8.5-10.1); COR NA(FOR HYPERGLY) 141 mmol/L (136-145); CREATININE 1.09 mg/dL (0.70-1.30); SODIUM 140 mmol/L (136-145); eGFR NON BLACK RACES > 60 (>60)
[2021-09-03 08:30] VITALS: BP 119/67
[2021-09-03] MEDS: LEVAQUIN PREMIX IV 500 MG 500 MG/100 ML BAG IV SCH (08:45)
[2021-09-03] MEDS: PROTONIX INJ 40 MG VIAL IVP SCH (08:48)
[2021-09-03] MEDS: COZAAR PO SCH (08:48)
[2021-09-03] MEDS: BENTYL CAP 10 MG PO SCH ×2 (08:48→10:33)
[2021-09-03] MEDS: ZEBETA TAB 5 MG PO SCH (08:49)
[2021-09-03] MEDS: PROSCAR PO SCH (08:49)
[2021-09-03] MEDS: PATIENT'S HOME MEDICATION (Empagliflozin [Jardiance] 25 mg Tablet) PO SCH (08:51)
[2021-09-03] MEDS: PATIENT'S HOME MEDICATION (Trospium 20 mg Tablet) PO SCH (08:51)
[2021-09-03] MEDS: PULMICORT NEB TX 0.5 MG NEB SCH (09:05)
--- NOTE | 2021-09-03 09:59 | PCM.PROG ---
Progress Note - Progress Note for Day of Date of Exam: 09/02/21 - Subjective Subjective: IS BEING TREATED FOR COLITIS AND DEHYDRATION. TODAY, HE IS ALERT AND ORIENTED, LYING IN BED ON MORNING ROUNDS. HE CONTINUES WITH COMPLAINTS OF ABDOMINAL CRAMPING, WEAKNESS, AND DARK STOOLS. HE DOES ADMIT TO SLIGHT IMPROVEMENT IN SYMPTOMS SINCE ADMISSION. FREQUENCY OF STOOLS HAVE DECREASED. ON EXAMINATION, HEART IS REGULAR IN RATE AND RHYTHM. BILATERAL LUNGS ARE NOTED WITH DIMINISHED LUNG SOUNDS THROUGHOUT. ABDOMEN IS ROUND, SOFT, AND NOTED WITH TENDERNESS TO THE LOWER QUADRANTS. NORMAL BOWEL SOUNDS ARE NOTED. HIS VITALS THIS MORNING ARE: 98.2-69-20-96%-112/57. LABS WERE OBTAINED. ABNORMAL LAB VALUES INCLUDE THE FOLLOWING: RBC 4.46, HCT 39.7, CHLORIDE 111, CARBON DIOXIDE 17.5, GLUCOSE 129, CALCIUM 8.1, AST 10, TOTAL PROTEIN 5.9, ALBUMIN 2.6. STOOLS POSITIVE FOR OCCULT BLOOD AND WHITE CELLS. STOOL CULTURE IS NEGATIVE. HE IS CURRENTLY RECEIVING NORMAL SALINE AT 75 ML/HR, FORTAZ 1G IV Q8H, LEVAQUIN 500MG IV DAILY, PROTONIX 40MG IV DAILY, PEPCID 20MG IV BID, ZOFRAN 4MG IV Q4H PRN, TORADOL 30MG IV Q8H, BENTYL 20MG PO QID, OTBS ACHS, HUMULIN R SLIDING SCALE, AND RESTORIL 15MG PO HS PRN. WE WILL CONTINUE WITH CURRENT PLAN OF CARE TODAY. OTHERWISE, WE PLAN TO FOLLOW UP WITH AM LABS AND CONTINUE TO MONITOR. TIME SPENT ON CLINICAL ASSESSMENT, REVIEWING LABS AND IMAGING, DECISION MAKING, AND DOCUMENTATION GREATER THAN 45 MINUTES. - Past Medical Family Social History Past Med/Fam/Surg Hx: No changes since H&P Allergies: Allergies codeine Adverse Reaction (Verified 05/26/19 18:10) morphine Adverse Reaction (Verified 05/26/19 18:10) - Review of Systems ROS: No change since H&P - Vital Signs and I&O's Vital Signs: Temperature 98.4 F Pulse Rate [Left Brachial] 86 Pulse Rate 88 Respiratory Rate 20 Blood Pressure [Left Arm] 119/67 O2 Sat by Pulse Oximetry 98 Intake and Output: Intake & Output 08/31/21 09/01/21 09/02/21 09/03/21 11:59 11:59 11:59 11:59 Intake Total 2363 / 2363 3296 / 3296 3304 / 3304 2522 / 2522 Balance 2362 / 3 3296 / 3296 3304 / 3304 2521 / 2521 - Physical Exam Oriented: Normal Eyes: Normal Ear: Normal Nose: Normal Throat: Normal Respiratory: Generalized, Diminished Cardiovascular: Normal : Normal Auscultation: Bowel Sounds: Normal Palpation: Normal Tenderness: RLQ, LLQ, Mild Skin: Decreased Turgur Musculoskeletal: Normal Psychiatric: Normal Mood Description: Calm Affect: Normal Speech Pattern: Clear, Appropriate - Laboratory and Diagnostics Result Diagrams: 09/03/21 05:30 09/03/21 05:30 Labs: 08/30/21 09:28 Stool Stool Culture - Final 08/30/21 09:28 Stool - Final Laboratory WBC 8.2 X10^3/uL (3.6-10.0) 09/03/21 05:30 RBC 4.42 X10^6/uL (4.7-6.0) L 09/03/21 05:30 Hgb 13.4 g/dL (13.5-18.0) L 09/03/21 05:30 Hct 39.4 % (42.0-54.0) L 09/03/21 05:30 MCV 89.0 fL (80.0-100.0) 09/03/21 05:30 MCH 30.4 pg (27.0-34.0) 09/03/21 05:30 MCHC 34.1 g/dL (33.0-35.0) 09/03/21 05:30 RDW 13.8 % (11.6-16.5) 09/03/21 05:30 Plt Count 205 X10^3/uL (150.0-450.0) 09/03/21 05:30 MPV 7.9 fL (7.4-11.0) 09/03/21 05:30 Neut % (Auto) 60.3 % (42.0-75.0) 09/03/21 05:30 Lymph % (Auto) 24.8 % (21.0-51.0) 09/03/21 05:30 [place] % (Auto) 11.2 % (0.0-13.0) 09/03/21 05:30 Eos % (Auto) 3.2 % (0.9-2.9) H 09/03/21 05:30 Baso % (Auto) 0.5 % (0.2-1.0) 09/03/21 05:30 Neut # (Auto) 5.0 x10^3/uL (2.2-4.8) H 09/03/21 05:30 Lymph # (Auto) 2.0 X10^3/uL (1.3-2.9) 09/03/21 05:30 [place] # (Auto) 0.9 x10^3/uL (0.3-0.8) H 09/03/21 05:30 Eos # (Auto) 0.3 x10^3/uL (0.0-0.2) H 09/03/21 05:30 Baso # (Auto) 0.0 X10^3/uL (0.0-0.1) 09/03/21 05:30 Absolute Nucleated RBC 0.1 /100WBC 09/03/21 05:30 Sodium 140 mmol/L (136-145) 09/03/21 05:30 Corrected Sodium 141 mmol/L (136-145) 09/03/21 05:30 Potassium 3.7 mmol/L (3.5-5.1) 09/03/21 05:30 Chloride 110 mmol/L (98-107) H 09/03/21 05:30 Carbon Dioxide 18.2 mmol/L (21-32) L 09/03/21 05:30 BUN 14 mg/dL (7-18) 09/03/21 05:30 Creatinine 1.09 mg/dL (0.70-1.30) 09/03/21 05:30 Est GFR (MDRD) Af Amer > 60 (>60) 09/03/21 05:30 Est GFR (MDRD) Non-Af > 60 (>60) 09/03/21 05:30 Glucose 145 mg/dL (65-99) H 09/03/21 05:30 POC Glucose (mg/dL) 144 mg/dL (65-99) H 09/03/21 05:31 Calcium 8.2 mg/dL (8.5-10.1) L 09/03/21 05:30 Corrected Calcium 9.3 mg/dL (8.5-10.1) 09/03/21 05:30 Total Bilirubin 0.20 mg/dL (0.2-1.0) 09/03/21 05:30 AST 14 Units/L (15-37) L 09/03/21 05:30 ALT 22 Units/L (12-78) 09/03/21 05:30 Alkaline Phosphatase 47 Units/L (46-116) 09/03/21 05:30 Total Protein 6.0 g/dL (6.4-8.2) L 09/03/21 05:30 Albumin 2.6 g/dL (3.4-5.0) L 09/03/21 05:30 Globulin 3.4 g/dL (2.5-4.5) 09/03/21 05:30 Albumin/Globulin Ratio 0.8 Ratio (1.1-2.1) L 09/03/21 05:30 Amylase 63 Units/L (25-115) 08/30/21 05:44 Lipase 207 Units/L (73-393) 08/30/21 05:44 Stool Description 6g semiloose browngr 08/30/21 09:28 Stool Description Fob tube 08/30/21 09:28 Stl Occult Blood (IFOB) Positive (NEGATIVE) A 08/30/21 09:28 Stool for White Cells Positive (NEGATIVE) A 08/30/21 09:28 Stl C. diff Tox B Gene Negative (NEGATIVE) 08/30/21 09:28 Stl C. diff [id number] Presumptive negative (NEGATIVE) 08/30/21 09:28 Cryptosporid parvum Ag Negative (NEGATIVE) 08/30/21 09:28 Giardia lamblia Ag Negative (NEGATIVE) 08/30/21 09:28 SARS CoV-2 RNA Rapid DEMI Negative (NEGATIVE) 08/29/21 16:25 - Plan (1) Colitis Status: Acute Plan: NORMAL SALINE AT 75 ML/HR, FORTAZ, LEVAQUIN, PROTONIX 40MG IV DAILY, PEPCID 20MG IV BID, ZOFRAN 4MG IV Q4H PRN, TORADOL 30MG IV Q8H ZAHIDA, BENTYL 20MG PO QID, OTBS ACHS, HUMULIN R SLIDING SCALE, AND RESTORIL 15MG PO HS PRN. (2) Abdominal pain Status: Acute Qualifiers: Abdominal location: lower abdomen, unspecified Qualified Code(s): R10.30 - Lower abdominal pain, unspecified Plan: NORMAL SALINE AT 75 ML/HR, FORTAZ, LEVAQUIN, PROTONIX 40MG IV DAILY, PEPCID 20MG IV BID, ZOFRAN 4MG IV Q4H PRN, BENTYL 20MG PO QID, OTBS ACHS, HUMULIN R SLIDING SCALE, AND RESTORIL 15MG PO HS PRN. (3) Diarrhea Status: Acute Qualifiers: Diarrhea type: unspecified type Qualified Code(s): R19.7 - Diarrhea, unspecified (4) Dehydration Status: Acute
[2021-09-03] MEDS: PEPCID 20 MG IV PREMIX* 20 MG/50 ML BAG IV SCH (10:12)
== END 2021-09-03 11:55 | disposition home or self-care (01) ==
LOC: MED/SURG
PROVIDERS: ADMIT Internal Medicine; ATTEND Internal Medicine
DX: K52.9 Noninfective gastroenteritis and colitis, unspecified; R42 Dizziness and giddiness; R06.02 Shortness of breath; R10.9 Unspecified abdominal pain; K92.2 Gastrointestinal hemorrhage, unspecified; E86.0 Dehydration; Z20.822 Contact with and (suspected) exposure to COVID-19